=== PATIENT | female | born 1990 | race Caucasian/White ===

== ENCOUNTER 2017-06-17 19:45 | Emergency (ER) | payer BC, OTHER ==
[2017-06-17 19:53] VITALS: RESP 16
[2017-06-17 20:25] LABS: Basophils % (A) 0 %; CHCM 33.3; Eosinophils # (A) 0.1 k/uL (0-0.7); Eosinophils % (A) 2 %; HCT 36.3 % (34.0-46.0); HDW 2.51; HGB 12.3 gm/dL (11.4-16.0); Luc # (Auto) 0.16; Luc % (Auto) 2; Lymphocytes # (A) 2.3 k/uL (1.0-4.8); Lymphocytes % (A) 31 %; MCH 28.6 pg (25.0-35.0); MCHC 33.9 g/dL (31.0-37.0); MCV 84.3 fL (80.0-100.0); Mean Platelet Volume 7.8; Monocytes # (A) 0.4 k/uL (0-1.0); Monocytes % (A) 6 %; Neutrophils # (A) 4.5 k/uL (1.3-7.7); Neutrophils % (A) 60 %; RBC 4.31 m/uL (3.80-5.40); RDW 13.1 % (11.5-15.5); WBC 7.5 k/uL (3.8-10.6); WBC (Perox) 7.65
[2017-06-17 20:27] LABS: Appearance,Urine Clear (Clear); Bilirubin,Urine Negative (Negative); Glucose,Urine (UA) Negative (Negative); Ketones,Urine Negative (Negative); Leukocyte Esterase,Urine Negative (Negative); Nitrite,Urine Negative (Negative); PH, Urine 5.5 (5.0-8.0); Protein,Urine Negative (Negative); Specific Gravity,Urine 1.021 (1.001-1.035); UA Billing (MACRO vs. MICRO) CHEM; Urobilinogen,Urine <2.0 mg/dL (<2.0)
[2017-06-17 20:37] LABS: ALT 23 U/L (9-52); AST 17 U/L (14-36); Alkaline Phosphatase 58 U/L (38-126); Anion Gap 10 mmol/L; Blood Urea Nitrogen 12 mg/dL (7-17); Calcium 9.8 mg/dL (8.4-10.2); Carbon Dioxide 22 mmol/L (22-30); Chloride 106 mmol/L (98-107); Glucose 104 mg/dL (74-99); Non-African American GFR(MDRD) >60 (>60 ml/min/1.73 sqM); Potassium 3.8 mmol/L (3.5-5.1); Sodium 138 mmol/L (137-145); Total Bilirubin 0.8 mg/dL (0.2-1.3); Total Protein 7.6 g/dL (6.3-8.2)
--- NOTE | 2017-06-17 21:55 | ED ---
Abdominal Pain HPI - General Chief Complaint: Abdominal Pain Stated Complaint: Abd Pain Time Seen by Provider: 06/17/17 20:00 Source: patient Mode of arrival: ambulatory Limitations: no limitations - History of Present Illness Initial Comments: 27-year-old female presenting for evaluation of right upper quadrant abdominal pain. She states that she's been having this pain for some time and had an ultrasound scheduled for this coming . She states that today the pain became much worse is located in the right upper quadrant and is as sharpness that radiates into her back. There doesn't seem to be any exacerbating factors she states that she has no appetite and the thought of eating food except feel like there is a lot of pain. There is associated nausea without vomiting and she denies melena, hematochezia, hematemesis, fevers , chills, chest pain, shortness of breath, dysuria, hematuria. - Related Data Home Medications Medication Instructions Recorded Confirmed Pnv,Calcium 72/Iron/Folic Acid 1 tab PO DAILY 07/16/16 06/17/17 [ Plus Tablet] Previous Rx's Medication Instructions Recorded HYDROcodone/APAP 5-325MG [[place] 1 - 2 tab PO Q6HR PRN #14 tab 06/17/17 5-325] Ondansetron Odt [Zofran Odt] 4 mg PO Q8HR PRN #10 tab 06/17/17 Allergies Allergy/AdvReac Type Severity Reaction Status Date / Time ibuprofen AdvReac Nausea & Verified 06/17/17 20:23 Vomiting Review of Systems ROS Statement: Those systems with pertinent positive or pertinent negative responses have been documented in the HPI. ROS Other: All systems not noted in ROS Statement are negative. Constitutional: Denies: fever, chills Eyes: Denies: eye pain, vision change ENT: Denies: ear pain, throat pain Respiratory: Denies: cough, dyspnea Cardiovascular: Denies: chest pain, palpitations Endocrine: Reports: fatigue, polydipsia, polyuria Gastrointestinal: Reports: abdominal pain, nausea. Denies: vomiting, diarrhea, constipation, hematemesis, melena, hematochezia Genitourinary: Denies: urgency, dysuria Musculoskeletal: Denies: back pain, arthralgia Skin: Denies: rash, lesions Neurological: Denies: headache, weakness Psychiatric: Denies: anxiety, depression Hematological/Lymphatic: Denies: easy bleeding, easy bruising Past Medical History Past Medical History: No Reported History History of Any Multi-Drug Resistant Organisms: None Reported Past Surgical History: No Surgical Hx Reported Past Anesthesia/Blood Transfusion Reactions: No Reported Reaction Past Psychological History: No Psychological Hx Reported Smoking Status: Never smoker Past Alcohol Use History: None Reported Past Drug Use History: None Reported - Past Family History Mother Family Medical History: No Reported History General Exam Limitations: no limitations General appearance: alert, in no apparent distress Head exam: Present: atraumatic, normocephalic, normal inspection Eye exam: Present: normal appearance, PERRL, EOMI. Absent: scleral icterus, conjunctival injection, periorbital swelling ENT exam: Present: normal exam, mucous membranes moist Neck exam: Present: normal inspection. Absent: tenderness, meningismus, lymphadenopathy Respiratory exam: Present: normal lung sounds bilaterally. Absent: respiratory distress, wheezes, rales, rhonchi, stridor Cardiovascular Exam: Present: regular rate, normal rhythm, normal heart sounds. Absent: systolic murmur, diastolic murmur, rubs, gallop, clicks GI/Abdominal exam: Present: soft, tenderness (Positive Carballo sign), normal bowel sounds. Absent: distended, guarding, rebound, rigid Rectal exam: Present: deferred Extremities exam: Present: normal inspection, full ROM, normal capillary refill. Absent: tenderness, pedal edema, joint swelling, calf tenderness Back exam: Present: normal inspection Neurological exam: Present: alert, oriented X3, CN II-XII intact Psychiatric exam: Present: normal affect, normal mood Skin exam: Present: warm, dry, intact, normal color. Absent: rash Course Vital Signs 06/17/17 19:49 Temperature 97.8 F Pulse Rate 79 Respiratory 16 Rate Blood Pressure 120/73 O2 Sat by Pulse 97 Oximetry Medical Decision Making - Medical Decision Making 27-year-old female presented for evaluation of right upper quadrant abdominal pain that she's had for the last week. Acutely worsening today she states she is unable to wait until for her outpatient ultrasound. On physical examination she does have a positive Carballo sign however abdomen is soft and non-peritoneal without signs of guarding, rigidity, or rebound. Remainder of her physical exam is benign. Concern for cholecystitis versus cholelithiasis and will obtain ultrasound abdomen, labs, urine and provide pain control. Labs revealed no significant abnormalities. Ultrasound of the abdomen showed some nonspecific findings however in discussion with the radiologist he states that outside of the positive sonographic Carballo sign there are no other significant findings. The patient was reevaluated and had improvement in her pain however it was still present. She is informed of all results and through shared decision making it was determined that she'll be discharged with instructions to follow-up with the on-call surgeon Dr. Bush. She was further advised to return to this facility if her symptoms should worsen or persist. The patient and her acknowledged an understanding of this information and agreed with this plan of care. - Lab Data Result diagrams: 06/17/17 20:00 06/17/17 20:00 Lab Results 06/17/17 06/17/17 06/17/17 Range/Units 20:00 20:00 20:00 WBC 7.5 (3.8-10.6) k/uL RBC 4.31 (3.80-5.40) m/uL Hgb 12.3 (11.4-16.0) gm/dL Hct 36.3 (34.0-46.0) % MCV 84.3 (80.0-100.0) fL MCH 28.6 (25.0-35.0) pg MCHC 33.9 (31.0-37.0) g/dL RDW 13.1 (11.5-15.5) % Plt Count 263 (150-450) k/uL Neutrophils % 60 % Lymphocytes % 31 % Monocytes % 6 % Eosinophils % 2 % Basophils % 0 % Neutrophils # 4.5 (1.3-7.7) k/uL Lymphocytes # 2.3 (1.0-4.8) k/uL Monocytes # 0.4 (0-1.0) k/uL Eosinophils # 0.1 (0-0.7) k/uL Basophils # 0.0 (0-0.2) k/uL Sodium 138 (137-145) mmol/L Potassium 3.8 (3.5-5.1) mmol/L Chloride 106 (98-107) mmol/L Carbon Dioxide 22 (22-30) mmol/L Anion Gap 10 mmol/L BUN 12 (7-17) mg/dL Creatinine 0.70 (0.52-1.04) mg/dL Est GFR (MDRD) Af Amer >60 (>60 ml/min/1.73 sqM) Est GFR (MDRD) Non-Af >60 (>60 ml/min/1.73 sqM) Glucose 104 H (74-99) mg/dL Calcium 9.8 (8.4-10.2) mg/dL Total Bilirubin 0.8 (0.2-1.3) mg/dL AST 17 (14-36) U/L ALT 23 (9-52) U/L Alkaline Phosphatase 58 (38-126) U/L Total Protein 7.6 (6.3-8.2) g/dL Albumin 4.4 (3.5-5.0) g/dL Lipase 159 (23-300) U/L HCG, Qual Not Detected Urine Color Urine Appearance (Clear) Urine pH (5.0-8.0) Ur Specific [place] (1.001-1.035) Urine Protein (Negative) Urine Glucose (UA) (Negative) Urine Ketones (Negative) Urine Blood (Negative) Urine Nitrite (Negative) Urine Bilirubin (Negative) Urine Urobilinogen (<2.0) mg/dL Ur Leukocyte Esterase (Negative) 06/17/17 Range/Units 20:15 WBC (3.8-10.6) k/uL RBC (3.80-5.40) m/uL Hgb (11.4-16.0) gm/dL Hct (34.0-46.0) % MCV (80.0-100.0) fL MCH (25.0-35.0) pg MCHC (31.0-37.0) g/dL RDW (11.5-15.5) % Plt Count (150-450) k/uL Neutrophils % % Lymphocytes % % Monocytes % % Eosinophils % % Basophils % % Neutrophils # (1.3-7.7) k/uL Lymphocytes # (1.0-4.8) k/uL Monocytes # (0-1.0) k/uL Eosinophils # (0-0.7) k/uL Basophils # (0-0.2) k/uL Sodium (137-145) mmol/L Potassium (3.5-5.1) mmol/L Chloride (98-107) mmol/L Carbon Dioxide (22-30) mmol/L Anion Gap mmol/L BUN (7-17) mg/dL Creatinine (0.52-1.04) mg/dL Est GFR (MDRD) Af Amer (>60 ml/min/1.73 sqM) Est GFR (MDRD) Non-Af (>60 ml/min/1.73 sqM) Glucose (74-99) mg/dL Calcium (8.4-10.2) mg/dL Total Bilirubin (0.2-1.3) mg/dL AST (14-36) U/L ALT (9-52) U/L Alkaline Phosphatase (38-126) U/L Total Protein (6.3-8.2) g/dL Albumin (3.5-5.0) g/dL Lipase (23-300) U/L HCG, Qual Urine Color Yellow Urine Appearance Clear (Clear) Urine pH 5.5 (5.0-8.0) Ur Specific [place] 1.021 (1.001-1.035) Urine Protein Negative (Negative) Urine Glucose (UA) Negative (Negative) Urine Ketones Negative (Negative) Urine Blood Negative (Negative) Urine Nitrite Negative (Negative) Urine Bilirubin Negative (Negative) Urine Urobilinogen <2.0 (<2.0) mg/dL Ur Leukocyte Esterase Negative (Negative) Disposition Clinical Impression: Abdominal pain, Positive Carballo's Sign Disposition: HOME SELF-CARE Condition: Stable Instructions: Abdominal Pain (ED), Cholecystitis (ED), Gallstones (ED) Additional Instructions: Please use medication as discussed. Please follow up with family doctor if symptoms have not improved over the next two days. Please return to the emergency room if your symptoms increase or worsen or for any other concerns. Prescriptions: HYDROcodone/APAP 5-325MG [[place] 5-325] 1 - 2 tab PO Q6HR PRN #14 tab PRN Reason: Analgesia Ondansetron Odt [Zofran Odt] 4 mg PO Q8HR PRN #10 tab PRN Reason: Nausea Referrals: Kasi Mendez MD [Primary Care Provider] - 1-2 days Time of Disposition: 22:52
--- NOTE | 2017-06-17 22:04 | US ---
EXAMINATION TYPE: US gallbladder DATE OF EXAM: 06/17/2017 COMPARISON: NONE CLINICAL HISTORY: Pain. EXAM MEASUREMENTS: Liver Length: 15.3 cm Gallbladder Wall: 0.2 cm CBD: 0.5 cm Right Kidney: 10.4 x 3.9 x 4.7 cm Limited due to bowel gas and pain. Pancreas: parts visualized appear wnl Liver: wnl Gallbladder: wnl, junctional folds noted Evidence for sonographic Carballo's sign: Yes CBD: Measures 0.5 cm positive Carballo sign. This can be associated with acute cholecystitis. 2. Right upper quadrant ultrasound is otherwise unremarkable., but tapers at pancreas head (0.2 cm) Right Kidney: wnl IMPRESSION: 1.
[2017-06-17 23:28] VITALS: BP 123/70; PULSE 67; TEMP 98.4
== END 2017-06-17 23:26 | disposition home or self-care (01) ==
LOC: EC 19:45
DX: R10.11 Right upper quadrant pain (principal); R19.8 Other specified symptoms and signs involving the digestive system and abdomen; Z88.6 Allergy status to analgesic agent; Z79.899 Other long term (current) drug therapy
CPT/HCPCS: 36415; 76705; 80053; 81003; 83690; 84703; 85025; 99284

== ENCOUNTER → 2017-06-20 | Outpatient (CLI) | payer BC, OTHER ==
--- NOTE | 2017-06-21 06:06 | NM ---
EXAMINATION TYPE: NM hepatobiliary w EF DATE OF EXAM: 06/20/2017 COMPARISON: Gallbladder ultrasound 3 days ago. HISTORY: Right upper quadrant pain per order. Intermittent abdominal pain with nausea for 10 days per patient. TECHNIQUE: After the intravenous administration of 5.5 mCi Tc 99m Mebrofenin hepatobiliary scintigrap hy is performed. Immediate images post injection. FINDINGS: There is satisfactory initial accumulation of tracer by the liver. The gallbladder is visualized wit hin 15 minutes. The small bowel activity is not well noticed even after 60 minutes. At one hour 8 o unces of oral ensure plus is given to mimic CCK and gallbladder ejection fraction is calculated at 77 %, in the normal range. Therefore there is no scintigraphic evidence of cystic or common bile duct obstruction to suggest acute cholecystitis or gallbladder dyskinesia. IMPRESSION: Exam is within normal limits.
== END | disposition home or self-care (01) ==
LOC: RADNMMAIN 14:54
PROVIDERS: ATTEND Student in an Organized Health Care Education/Training Program
DX: R10.11 Right upper quadrant pain (principal)
CPT/HCPCS: 78226; A9537

== ENCOUNTER 2018-09-02 13:26 | Outpatient (CLI) | payer BC, OTHER ==
[2018-09-02 15:30] VITALS: BP 122/68; PULSE 93; RESP 18; TEMP 97.6
--- NOTE | 2018-10-14 09:31 | P.MSEPDOC ---
Presenting Problems - Arrival Data Date of Arrival on Unit: 09/02/18 Time of Arrival on Unit: 13:27 Mode of Transport: Ambulatory - Complaint OB-Reason for Admission/Chief Complaint: Other Comment: pt arrived c/o cramping and back discomfort Medical History - Information : 2 Para: 1 Term: 1 : 0 Abortions: Spontaneous or Elective: 0 Number of Living Children: 1 - Gestational Age Gestational Age by REGINE (wks/days): 39 Weeks and 2 Days Review of Systems - Review of Systems Constitutional: No problems Breast: No problems ENT: No problems Cardiovascular: No problems Respiratory: No problems Gastrointestinal: No problems Genitourinary: No problems Musculoskeletal: No problems Neurological: No problems Skin: No problems Vital Signs - Temperature Temperature: 97.6 F Temperature Source: Oral - Pulse Right Brachial Pulse Rate: 93 Pulse Assessment Method: Automatic Cuff - Respirations Respiratory Rate: 18 Oxygen Delivery Method: Room Air O2 Sat by Pulse Oximetry: 99 - Blood Pressure Right Arm Blood Pressure: 122/68 Blood Pressure Mean: 86 Blood Pressure Source: Automatic Cuff Medical Screen Scoring (Pre) - Cervical Exam Dilation: 1-3 cm = 1 Effacement: More than 50% = 2 Membranes: Intact - Uterine Contractions Frequency: > 5 minutes apart = 1 Duration: N/A Intensity: N/A - Maternal Vital Signs Maternal Temperature: N/A Maternal Blood Pressure: N/A Signs of Preeclampsia: N/A Maternal Respirations: N/A - Assessment Baseline FHR: 140 Heart Rate - NICHD Category: Category I (Normal) = 0 NST: Reactive Position: N/A Station: N/A - Total Score Total Score (Pre): 4 Medical Screen Scoring (Post) - Post Treatment Level of Risk Post Treatment Level of Risk: Low (0-5) Physician Notification (Post) - Physician Notified Physician Notified Date: 09/02/18 Physician Notified Time: 15:10 Spoke With: dr palumbo New Order Received: Yes - Notification Comment Comment: cervix rechecked after 1 hour with no change noted. may be discharge to home Disposition - Disposition OB Disposition: Physician follow up in office, Discharge to home Discharge Date: 09/02/18 Discharge Time: 15:20 I agree with the RN Medical Screening Exam: Yes Risk & Benefit of care provided described in d/c instruction: Yes Diagnosis: FALSE LABOR AT OR AFTER 37 COMPLETED WEEKS OF GESTATION
== END 2018-09-02 15:20 | disposition home or self-care (01) ==
LOC: FBPOP 13:26
PROVIDERS: ATTEND Obstetrics & Gynecology
DX: O47.1 False labor at or after 37 completed weeks of gestation (principal); Z3A.39 39 weeks gestation of pregnancy
CPT/HCPCS: 59025; 99213

== ENCOUNTER 2018-09-08 02:12 | Inpatient (IN) | payer BC, OTHER ==
[2018-09-08] MEDS ORDERED: METHYLERGONOVINE 0.2 MG/ML 1 ML AMP IM PRN (02:40)
[2018-09-08] MEDS ORDERED: CARBOPROST TROMETHAMINE 250 MCG/ML 1 ML AMP IM PRN (02:40)
[2018-09-08] MEDS ORDERED: OXYTOCIN 10 UNIT/ML 1 ML VIAL IM PRN (02:40)
[2018-09-08] MEDS ORDERED: LIDOCAINE 0.5% (PF) 5 MG/ML (50 ML SDV) SQ PRN (02:40)
[2018-09-08] MEDS ORDERED: TERBUTALINE 1 MG/ML VIAL SQ PRN (02:40)
[2018-09-08] MEDS ORDERED: LACTATED RINGERS 1,000 ML IV SCH (02:45)
[2018-09-08 02:52] LABS: Anisocytosis Slight; Basophils % (A) 0 %; Eosinophils # (A) 0.1 k/uL (0-0.7); Eosinophils % (A) 1 %; HCT 30.9 % (34.0-46.0); HGB 9.8 gm/dL (11.4-16.0); Hypochromasia Slight; Lymphocytes # (A) 2.1 k/uL (1.0-4.8); Lymphocytes % (A) 29 %; MCH 25.7 pg (25.0-35.0); MCHC 31.7 g/dL (31.0-37.0); MCV 80.9 fL (80.0-100.0); Mean Platelet Volume 9.5; Monocytes # (A) 0.4 k/uL (0-1.0); Monocytes % (A) 6 %; Neutrophils # (A) 4.3 k/uL (1.3-7.7); Neutrophils % (A) 61 %; Platelet Count 243 k/uL (150-450); RBC 3.82 m/uL (3.80-5.40); RDW 17.2 % (11.5-15.5); WBC 7.1 k/uL (3.8-10.6)
[2018-09-08] MEDS ORDERED: fentaNYL (PF) 50 MCG/ML 2 ML AMP ONE (03:00)
[2018-09-08] MEDS ORDERED: fentaNYL (PF) 50 MCG/ML 5 ML AMP ONE (03:00)
[2018-09-08] MEDS ORDERED: ROPIVACAINE 5MG/ML 20ML VIAL ONE (03:00)
[2018-09-08] MEDS ORDERED: SODIUM CHLORIDE 0.9% 100 ML BAG ONE (03:00)
[2018-09-08] MEDS: LACTATED RINGERS 1,000 ML IV SCH ×3 (03:15→20:06)
[2018-09-08 03:57] VITALS: BMI 35.4
[2018-09-08] MEDS ORDERED: IBUPROFEN 600 MG TAB PO PRN (04:55)
[2018-09-08] MEDS ORDERED: HYDROCORTISONE 2.5% RECTAL CREAM 30 GM TUBE RECTAL PRN (04:55)
[2018-09-08] MEDS ORDERED: diphenhydrAMINE 50 MG CAP PO PRN (04:55)
[2018-09-08] MEDS ORDERED: BENZOCAINE/MENTHOL SPRAY 1 GM/SPRAY AEROSOL TOPICAL PRN (04:55)
[2018-09-08] MEDS ORDERED: ZOLPIDEM 5 MG TAB PO PRN (04:55)
[2018-09-08] MEDS ORDERED: WITCH HAZEL 1 EACH MED..PAD TOPICAL PRN (04:55)
[2018-09-08] MEDS ORDERED: SIMETHICONE 80 MG CHEWABLE PO PRN (04:55)
[2018-09-08] MEDS ORDERED: diphenhydrAMINE 50 MG/ML 1 ML VIAL IVP PRN ×2 (04:55)
[2018-09-08] MEDS ORDERED: diphenhydrAMINE 25 MG CAP PO PRN (04:55)
[2018-09-08] MEDS ORDERED: LANOLIN CREAM 5 GM TUBE TOPICAL PRN (04:55)
[2018-09-08] MEDS ORDERED: OXYTOCIN 20 UNITS/1000 ML NS 1,000 ML IV SCH (05:00)
--- NOTE | 2018-09-08 05:03 | P.HPOB ---
History of Present Illness H&P Date: 09/08/18 Chief Complaint: IUP at 40 and 1/7 weeks, active labor This is a very pleasant 28-year-old 001 at 40 and one sevenths weeks, estimated due date of 1123. Patient states she started having regular painful contractions around 12:30. Patient notes good movement denies vaginal bleeding or loss of fluid at this time. Patient has had routine care with Dr. Troncoso since 7 weeks of gestation. On blood work showed blood type A+, rubella immune, RPR nonreactive, hepatitis B surface antigen negative, HIV negative, she did pass her 1 hour Glucola screen at 136, GBS negative on 08/13. Review of Systems Constitutional: Denies chills, Denies fatigue, Denies fever Cardiovascular: Reports leg edema Respiratory: Denies cough, Denies dyspnea Gastrointestinal: Denies constipation, Denies diarrhea, Denies nausea, Denies vomiting Genitourinary: Reports Past Medical History Past Medical History: No Reported History History of Any Multi-Drug Resistant Organisms: None Reported Past Surgical History: No Surgical Hx Reported Past Anesthesia/Blood Transfusion Reactions: No Reported Reaction Past Psychological History: No Psychological Hx Reported Smoking Status: Never smoker Past Alcohol Use History: None Reported Past Drug Use History: None Reported - Past Family History Mother Family Medical History: No Reported History Medications and Allergies Home Medications Medication Instructions Recorded Confirmed Type Pnv,Calcium 72/Iron/Folic Acid 1 tab PO DAILY 07/16/16 09/08/18 History [ Plus Tablet] Allergies Allergy/AdvReac Type Severity Reaction Status Date / Time ibuprofen AdvReac Nausea & Verified 09/08/18 02:24 Vomiting Exam Osteopathic Statement: *. No significant issues noted on an osteopathic structural exam other than those noted in the History and Physical/Consult. Vital Signs Temp Pulse Resp BP Pulse Ox 09/08/18 03:54 97 F L 59 L 16 122/68 98 09/08/18 02:25 97.7 F 78 18 128/72 97 Intake and Output 09/07/18 09/07/18 09/08/18 14:59 22:59 06:59 Other: Weight 90.718 kg Targeted physical exam was performed on this date in general this is a well- nourished well-developed female in active labor, abdomen is noted to be gravid and appropriate for gestational age, on cervical exam she was complete with a bulging bag of water and vertex presentation. Amniotomy was performed and clear fluid was obtained. The heart tones were noted to be reassuring, and patient was cherie every 3 minutes. Results Result Diagrams: 09/08/18 02:45 Abnormal Lab Results - Last 24 Hours (Table) 09/08/18 Range/Units 02:45 Hgb 9.8 L (11.4-16.0) gm/dL Hct 30.9 L (34.0-46.0) % RDW 17.2 H (11.5-15.5) % Assessment and Plan (1) Term Current Visit: Yes Status: Acute Code(s): Z34.80 - ENCOUNTER FOR SUPRVSN OF NORMAL , UNSP TRIMESTER SNOMED Code(s): 54291445 (2) Active labor at term Current Visit: Yes Status: Acute Code(s): FOK2851 - SNOMED Code(s): 50467475 Plan: Patient minutes labor and delivery for expectant management, she does desire epidural.
--- NOTE | 2018-09-08 05:06 | P.PROBDLV ---
Vaginal Delivery Note - . Vaginal Delivery Note: This is a very pleasant 28-year-old 2 para 1 at 40 and one sevenths weeks that presented to labor and delivery in active labor. Patient was found to be 6-7 cm dilated and admitted to labor and delivery. Patient was uncomfortable and requested epidural. Epidural was placed by anesthesia without difficulty. Patient progressed to complete amniotomy was performed and clear fluid was obtained. Patient was then placed in the modified lithotomy position, and with excellent maternal effort patient normal spontaneous vaginal delivery of a viable female infant at 435, weight of 7 lbs. 7 oz., Apgars of 9 and 9 at one and 5 minutes respectively. Afterwards the placenta was doubly clamped and cut and delivered spontaneously intact with a three-vessel cord being noted. Inspection the patient's vaginal vault a second-degree midline laceration was noted this was repaired in the usual fashion with 3-0 Rapide. In addition a left labial laceration was noted and repaired with 4-0 chromic in an interrupted fashion. Afterwards hemostasis was appreciated and the uterus was noted to be firm and below the umbilicus. Estimated blood loss 200 mL Patient and tolerated delivery well and are resting comfortably.
[2018-09-08] MEDS: SENNOSIDES-DOCUSATE SODIUM 1 EACH TAB PO SCH ×2 (08:13→21:43)
[2018-09-08] MEDS ORDERED: PRENATAL VIT-IRON-FOLIC ACID 1 EACH CAP PO SCH (09:00)
[2018-09-08] MEDS: ACETAMINOPHEN TAB 325 MG TAB PO PRN ×2 (13:43→20:13)
[2018-09-09 06:38] LABS: Anisocytosis Slight; Basophils % (A) 0 %; Eosinophils # (A) 0.1 k/uL (0-0.7); Eosinophils % (A) 1 %; HCT 26.5 % (34.0-46.0); HGB 8.4 gm/dL (11.4-16.0); Hypochromasia Slight; Lymphocytes % (A) 21 %; MCH 25.7 pg (25.0-35.0); MCHC 31.6 g/dL (31.0-37.0); MCV 81.2 fL (80.0-100.0); Mean Platelet Volume 9.8; Monocytes # (A) 0.4 k/uL (0-1.0); Monocytes % (A) 4 %; Neutrophils % (A) 72 %; Platelet Count 180 k/uL (150-450); RBC 3.26 m/uL (3.80-5.40); RDW 17.1 % (11.5-15.5); WBC 9.7 k/uL (3.8-10.6)
--- NOTE | 2018-09-09 06:52 | P.PN ---
Progress Note - Text Progress Note Date: 09/09/18 patient evaluated post labor epidural denies any headaches or complaints cleared from anesthesia
--- NOTE | 2018-09-09 07:49 | P.DS ---
Providers Date of admission: 09/08/18 02:29 Expected date of discharge: 09/09/18 Attending physician: Vanita Troncoso Primary care physician: Stated None Hospital Course: This is a 28 rolled white female 2 para 1001 EDC 09/07/2018 at 40 and one sevenths weeks' gestation. Patient presented from home and active spontaneous labor. was essentially unremarkable, rubella status immune, group B strep cultures negative. Please see dictated history and physical for details. Patient progressed quickly, received an epidural per her request. Artificial amniorrhexis revealed clear fluid. She went on to deliver spontaneously a liveborn female with scores of 9 and 9 at one and 5 minutes respectively. Infant weighed 3360 g or 7 pounds 6.5 ounces. There was an estimated blood loss recorded of 200 mL, and a small left labial laceration that was easily repaired. Please see dictated delivery note for details. This morning the patient is doing well. She is voiding, ambulating and passing flatus without difficulty. Vital signs are stable and she is afebrile. Fundus is firm and in the midline, symmetric and 18 week size. Extremities are negative for edema. Argyle is doing well. Patient is judged to be in very good condition for discharge home. Patient is being discharged home with instructions to follow-up with me in the office in 6 weeks. I have reminded her no intercourse, tampons or douching. She will use [id number] Advil or Aleve as needed for pain. I've asked her to call me with any fevers shakes or chills, foul smelling or copious lochia , with the passage of large blood clots, with any pain not alleviated by over- the-counter products, or indeed with any concerns. We have discussed options for contraception and we will discuss this further in the office. Patient Condition at Discharge: Good Plan - Discharge Summary Discharge Rx Participant: No New Discharge Prescriptions: No Action Pnv,Calcium 72/Iron/Folic Acid [ Plus Tablet] 1 tab PO DAILY Discharge Medication List Pnv,Calcium 72/Iron/Folic Acid [ Plus Tablet] 1 tab PO DAILY 07/16/16 [ History] Follow up Appointment(s)/Referral(s): Vanita Troncoso MD [STAFF PHYSICIAN] - 6 Weeks Discharge Disposition: HOME SELF-CARE
[2018-09-09] MEDS: ACETAMINOPHEN TAB 325 MG TAB PO PRN (08:13)
[2018-09-09] MEDS: SENNOSIDES-DOCUSATE SODIUM 1 EACH TAB PO SCH (08:15)
[2018-09-09 08:24] VITALS: BP 127/70; PULSE 103; RESP 18; TEMP 97.9
== END 2018-09-09 11:45 | disposition home or self-care (01) | DRG 807 ==
LOC: FBPOP 02:12 → 4FBP 02:29
PROVIDERS: ADMIT Obstetrics & Gynecology Obstetrics; ATTEND Obstetrics & Gynecology
PROC: 10E0XZZ Delivery of Products of Conception, External Approach (ICD-10-PCS; principal; 2018-09-08)
PROC: 0KQM0ZZ Repair Perineum Muscle, Open Approach (ICD-10-PCS; 2018-09-08)
PROC: 0HQ9XZZ Repair Perineum Skin, External Approach (ICD-10-PCS; 2018-09-08)
DX: O70.1 Second degree perineal laceration during delivery (principal); O70.0 First degree perineal laceration during delivery; Z37.0 Single live birth; Z3A.40 40 weeks gestation of pregnancy
CPT/HCPCS: 59025; 85025; 86850; 86900; 86901; 99213

== ENCOUNTER 2018-09-12 11:33 | Emergency (ER) | payer BC ==
--- NOTE | 2018-09-12 13:31 | ED ---
General Adult HPI - General Chief complaint: Headache Stated complaint: epidural issues Source: patient Mode of arrival: ambulatory Limitations: no limitations - History of Present Illness Initial comments: Dictation was produced using [employer] dictation software. please excuse any grammatical, word or spelling errors. Chief Complaint: 28-year-old female presents with chief complaint of headache. History of Present Illness: Patient is a 28-year-old female who presents one week . Patient states she had uncomplicated . She did receive epidural during the . She states she has a headache that's throbbing in nature. It's worse with standing and improves with lying flat. Neuro deficits. Denies any vision changes. The ROS documented in this emergency department record has been reviewed and confirmed by me. Those systems with pertinent positive or negative responses have been documented in the HPI. All other systems are other negative and/or noncontributory. - Related Data Home Medications Medication Instructions Recorded Confirmed Acetaminophen Tab [Tylenol Tab] 1,000 mg PO Q6HR PRN 09/12/18 09/12/18 Naproxen Sodium [Aleve] 220 mg PO Q12HR PRN 09/12/18 09/12/18 Allergies Allergy/AdvReac Type Severity Reaction Status Date / Time ibuprofen AdvReac Nausea & Verified 09/12/18 14:57 Vomiting Review of Systems ROS Statement: Those systems with pertinent positive or pertinent negative responses have been documented in the HPI. ROS Other: All systems not noted in ROS Statement are negative. Past Medical History Past Medical History: No Reported History History of Any Multi-Drug Resistant Organisms: None Reported Past Surgical History: No Surgical Hx Reported Past Anesthesia/Blood Transfusion Reactions: No Reported Reaction Past Psychological History: No Psychological Hx Reported Smoking Status: Never smoker Past Alcohol Use History: None Reported Past Drug Use History: None Reported - Past Family History Mother Family Medical History: No Reported History General Exam - General Exam Comments Initial Comments: PHYSICAL EXAM: General Impression: Alert and oriented x3, acute distress secondary to pain HEENT: Normocephalic atraumatic, extra-ocular movements intact, pupils equal and reactive to light bilaterally, mucous membranes moist. Cardiovascular: Heart regular rate and rhythm, S1&S2 audible, no murmurs, rubs or gallops Chest: Lungs clear to auscultation bilaterally, no rhonchi, no wheeze, no rales Abdomen: Bowel sounds present, abdomen soft, non-tender, non-distended, no organomegaly Musculoskeletal: Pulses present and equal in all extremities, no peripheral edema Motor: Power 5/5 bilaterally, no focal deficits noted Neurological: CN II-XII grossly intact, no focal motor or sensory deficits noted Skin: Intact with no visualized rashes Psych: Normal affect and mood Limitations: no limitations Course Vital Signs 09/12/18 09/12/18 11:50 14:49 Temperature 98.3 F Pulse Rate 69 66 Respiratory 18 15 Rate Blood Pressure 128/88 146/88 O2 Sat by Pulse 99 98 Oximetry Medical Decision Making - Medical Decision Making ED course: Patient is a 28-year-old female presents with chief complaint of headache. Vital signs upon arrival are within acceptable limits. Patient was initially evaluated in the waiting room. Patient is normotensive. No clinical suspicion of preeclampsia at this time. Patient's history is consistent with post-epidural headache. Patient given intravenous fluids and caffeine. Anesthesia was contacted. They will plan to do a blood patch. Emergency department as soon as possible. Patient was given intravenous fluids and caffeine. Blood patch was performed by anesthesia. Anesthesia recommended observing patient for an hour. Patient reevaluated with improved symptoms. Patient must follow-up with primary care physician after discharge. Disposition Clinical Impression: Lumbar puncture headache Disposition: HOME SELF-CARE Condition: Good Instructions: Acute Headache (ED) Is patient prescribed a controlled substance at d/c from ED?: No Referrals: Kasi Mendez MD [Primary Care Provider] - 1-2 days Time of Disposition: 16:37
[2018-09-12] MEDS ORDERED: SODIUM CHLORIDE 0.9% 1,000 ML IV STA (14:56)
[2018-09-12] MEDS ORDERED: CAFFEINE-SODIUM BENZOATE 500 MG in SODIUM CHLORIDE 0.9% 1,000 ML IVPB ONE (14:56)
[2018-09-12 18:12] LABS: Anisocytosis Slight; Basophils % (A) 0 %; Eosinophils # (A) 0.1 k/uL (0-0.7); Eosinophils % (A) 1 %; HCT 32.2 % (34.0-46.0); HGB 10.8 gm/dL (11.4-16.0); Hypochromasia Slight; Lymphocytes # (A) 1.8 k/uL (1.0-4.8); Lymphocytes % (A) 21 %; MCH 27.1 pg (25.0-35.0); MCHC 33.5 g/dL (31.0-37.0); MCV 80.8 fL (80.0-100.0); Mean Platelet Volume 8.1; Monocytes # (A) 0.4 k/uL (0-1.0); Monocytes % (A) 5 %; Neutrophils # (A) 6.3 k/uL (1.3-7.7); Neutrophils % (A) 72 %; Platelet Count 290 k/uL (150-450); RBC 3.99 m/uL (3.80-5.40); RDW 17.4 % (11.5-15.5); WBC 8.8 k/uL (3.8-10.6)
[2018-09-12 18:14] LABS: Appearance,Urine Clear (Clear); Bacteria,Urine Rare /hpf; Bilirubin,Urine Negative (Negative); Blood,Urine Moderate (Negative); Color,Urine Colorless; Glucose,Urine (UA) Negative (Negative); Ketones,Urine 1+ (Negative); Leukocyte Esterase,Urine Moderate (Negative); Nitrite,Urine Negative (Negative); Protein,Urine Negative (Negative); RBC,Urine 12 /hpf (0-5); Specific Gravity,Urine 1.005 (1.001-1.035); Squamous Epithelial Cell,Urine 1 /hpf (0-4); Urobilinogen,Urine <2.0 mg/dL (<2.0); WBC,Urine 15 /hpf (0-5)
[2018-09-12 18:21] LABS: INR 0.9 (<1.2); Prothrombin Time 9.4 sec (9.0-12.0)
[2018-09-12 18:22] LABS: ALT 36 U/L (9-52); AST 22 U/L (14-36); Albumin 3.5 g/dL (3.5-5.0); Alkaline Phosphatase 108 U/L (38-126); Anion Gap 7 mmol/L; Blood Urea Nitrogen 9 mg/dL (7-17); Calcium 8.8 mg/dL (8.4-10.2); Carbon Dioxide 22 mmol/L (22-30); Chloride 113 mmol/L (98-107); Glucose 83 mg/dL (74-99); Magnesium 1.8 mg/dL (1.6-2.3); Phosphorus 3.7 mg/dL (2.5-4.5); Potassium 4.6 mmol/L (3.5-5.1); Sodium 142 mmol/L (137-145); Total Bilirubin 1.1 mg/dL (0.2-1.3); Total Protein 6.9 g/dL (6.3-8.2); Uric Acid 4.8 mg/dL (3.7-7.4)
[2018-09-12 18:34] LABS: Creatine Kinase MB 1.1 ng/mL (0.0-2.4)
[2018-09-12] MEDS ORDERED: LABETALOL 5 MG/ML VIAL MDV IVP STA (20:03)
[2018-09-12 20:28] VITALS: RESP 14
[2018-09-12 20:31] VITALS: PULSE 68
[2018-09-12 20:40] VITALS: TEMP 97.9
[2018-09-12 20:48] VITALS: BP 133/88
== END 2018-09-12 20:45 | disposition home or self-care (01) ==
LOC: EC 11:33
DX: O99.355 Diseases of the nervous system complicating the puerperium (principal); G97.1 Other reaction to spinal and lumbar puncture; O99.89 Other specified diseases and conditions complicating pregnancy, childbirth and the puerperium; R03.0 Elevated blood-pressure reading, without diagnosis of hypertension; Z88.6 Allergy status to analgesic agent
CPT/HCPCS: 36415; 62273; 80053; 81001; 82550; 82553; 83735; 84100; 84550; 85025; 85384; 85610; 85730; 87086; 96361; 96365; 96375; 99284

== ENCOUNTER 2018-12-08 00:19 | Inpatient (IN) | payer BC, OTHER ==
--- NOTE | 2018-12-08 01:12 | ED ---
Abdominal Pain HPI - General Chief Complaint: Abdominal Pain Stated Complaint: Transfer From [facility] Seen by Provider: 12/08/18 00:35 Source: patient Mode of arrival: ambulatory Limitations: no limitations - History of Present Illness Initial Comments: 28-year-old female patient presents to the emergency department as a transfer from [facility] for admission for choledocholithiasis. Patient initially presented to the emergency department for a 2 day history of right upper quadrant abdominal pain, nausea, and vomiting. Patient states that pain worsened whenever she attempted to eat. Patient states that she was unable to keep down any food or fluids for the past 2 days. Patient describes the pain as a sharp crampy pain to the right upper quadrant that radiates through to her back. Denies any radiation to the shoulder. Denies any fever or chills. Patient states that she has had similar episodes of this type of pain over the last 12 weeks but this was the worst episode. Patient is currently breast- feeding. Denies any chance of currently. Patient denies any recent rash, shortness breath, chest pain, diarrhea, constipation, back pain, numbness , tingling, dizziness, weakness, hematuria, dysuria, urinary urgency, urinary frequency, headache, visual changes, or any other complaints. - Related Data Home Medications Medication Instructions Recorded Confirmed Acetaminophen Tab [Tylenol Tab] 1,000 mg PO Q6HR PRN 09/12/18 09/12/18 Naproxen Sodium [Aleve] 220 mg PO Q12HR PRN 09/12/18 09/12/18 Allergies Allergy/AdvReac Type Severity Reaction Status Date / Time ibuprofen AdvReac Nausea & Verified 09/12/18 14:57 Vomiting Review of Systems ROS Statement: Those systems with pertinent positive or pertinent negative responses have been documented in the HPI. ROS Other: All systems not noted in ROS Statement are negative. Past Medical History Past Medical History: No Reported History History of Any Multi-Drug Resistant Organisms: None Reported Past Surgical History: No Surgical Hx Reported Past Anesthesia/Blood Transfusion Reactions: No Reported Reaction Past Psychological History: No Psychological Hx Reported Smoking Status: Never smoker Past Alcohol Use History: None Reported Past Drug Use History: None Reported - Past Family History Mother Family Medical History: No Reported History General Exam Limitations: no limitations General appearance: alert, in no apparent distress, other (Physical well- developed, well-nourished adult female patient in no acute distress. Vital signs upon presentation are temperature 97.6F, pulse 67, respirations 16, blood pressure 103/68, pulse ox 100% on room air.) Eye exam: Present: normal appearance, PERRL, EOMI. Absent: scleral icterus, conjunctival injection, periorbital swelling ENT exam: Present: normal exam, normal oropharynx, mucous membranes moist Respiratory exam: Present: normal lung sounds bilaterally. Absent: respiratory distress, wheezes, rales, rhonchi, stridor Cardiovascular Exam: Present: regular rate, normal rhythm, normal heart sounds. Absent: systolic murmur, diastolic murmur, rubs, gallop, clicks GI/Abdominal exam: Present: soft, tenderness (Right upper quadrant abdominal tenderness), normal bowel sounds. Absent: distended, guarding, rebound, rigid Neurological exam: Present: alert, oriented X3, CN II-XII intact Psychiatric exam: Present: normal affect, normal mood Skin exam: Present: warm, dry, intact, normal color. Absent: rash Course Vital Signs 12/08/18 00:21 Temperature 97.6 F Pulse Rate 67 Respiratory 16 Rate Blood Pressure 103/68 O2 Sat by Pulse 100 Oximetry Medical Decision Making - Medical Decision Making 28 old female patient presented to the emergency department as a transfer from [facility] for choledocholithiasis. Patient has been having 2- 3 day history of abdominal pain and vomiting. Abdominal pain worsens with eating. Today she is unable to keep down any food or fluids. Physical examination does reveal right upper quadrant abdominal tenderness. Mild scleral icterus. Labs reviewed from the previous hospital showed normal white blood cell count alk phos 232, a LT a 56, AST 614, total bilirubin 4.1, direct bili 0.6, amylase and lipase were normal. Patient 3+ ketones in the urine. CT abdomen and pelvis was obtained and did show evidence for choledocholithiasis with a 6 mm stone in the distal common bile duct at the level of the pancreatic head. Associated mild dilated patient of the common bile duct measuring 9 mm as well as dilatation of the cystic duct. Mild prominent central intrahepatic bile ducts. Patient was given Pepcid, Zofran, and Zosyn as well as 3 L of normal saline. We will admit to [facility] hospitalists. Gastric urology will be consulted. We will continue Zosyn. - Radiology Data Radiology results: report reviewed CT abdomen and pelvis was obtained with contrast at [facility], report was reviewed in its entirety. Impression by Dr. Lomax shows choledocholithiasis with a 6 mm stone in the distal common bile duct at the level of the pancreatic head. Associated mild dilatation of the common bile duct measuring 9 mm, as well as dilatation of the cystic duct. Mild prominence of the central intrahepatic bile ducts. Additional focal low density in the right hepatic lobe measuring 8 mm, may represent low density lesion versus focal dilatation of the bile duct. Calcifications along the wall the gallbladder, likely represent stones with questionable wall calcification. The appendix appears normal. Small free pelvic fluid is likely physiologic versus reactive. Disposition Clinical Impression: Choledocholithiasis Disposition: ADMITTED IP TO THIS [facility] Condition: Serious Referrals: Kasi Mendez MD [Primary Care Provider] - 1-2 days Decision to Admit Reason: Admit from EC Decision Date: 12/08/18 Decision Time: 01:12
[2018-12-08] MEDS ORDERED: NALOXONE 0.4 MG/ML 1 ML VIAL IV PRN (01:13)
[2018-12-08] MEDS ORDERED: ONDANSETRON 4 MG/2 ML VIAL IVP PRN (01:13)
[2018-12-08] MEDS: SODIUM CHLORIDE 0.9% 1,000 ML IV SCH ×3 (02:07→23:59)
[2018-12-08 02:39] VITALS: BMI 31.1
[2018-12-08] MEDS: MORPHINE SULFATE 4 MG/ML SYRINGE IV PRN ×3 (06:42→23:58)
[2018-12-08 11:58] LABS: INR 1.1 (<1.2); Prothrombin Time 11.5 sec (9.0-12.0)
[2018-12-08 12:04] LABS: ALT 572 U/L (9-52); AST 251 U/L (14-36); Albumin 3.6 g/dL (3.5-5.0); Alkaline Phosphatase 213 U/L (38-126); Anion Gap 11 mmol/L; Bilirubin, Conjugated 1.2 mg/dL (0.0-0.3); Bilirubin, Delta 1.3 mg/dL (0.0-0.2); Bilirubin,Unconjugated 2.4 mg/dL (0.0-1.1); Blood Urea Nitrogen 13 mg/dL (7-17); Calcium 8.7 mg/dL (8.4-10.2); Carbon Dioxide 18 mmol/L (22-30); Chloride 112 mmol/L (98-107); Glucose 54 mg/dL (74-99); Potassium 4.4 mmol/L (3.5-5.1); Sodium 141 mmol/L (137-145); Total Bilirubin 4.9 mg/dL (0.2-1.3); Total Protein 6.4 g/dL (6.3-8.2)
--- NOTE | 2018-12-08 16:08 | P.CONS ---
History of Present Illness - Reason for Consult Consult date: 12/08/18 choledocholithiasis Requesting physician: Biju Crawford - Chief Complaint Abdominal pain - History of Present Illness Pleasant 28-year-old female who was transferred to [facility] from an outside hospital after presenting with complaints of abdominal pain. The patient reports episodes of right upper quadrant abdominal pain occurring since her first 2 years ago. Episodes have been intermittent. The patient recently gave to her second child. She developed severe abdominal pain in the epigastric and right upper quadrant of her abdomen with radiation to her back. The patient had been present for 2 days prior to presentation to the hospital for evaluation. She reports the pain is intense with associated nausea and decreased oral intake. The patient had CT imaging performed which showed findings of a distal common bile duct calculi with mild CBD dilation. The patient was transferred for therapeutic intervention with ERCP. On presentation to the hospital she was found to have a total bilirubin 4.9, alkaline phosphatase 213, AST 251 and ALT 572. No fevers or chills reported. Review of Systems REVIEW OF SYSTEMS: CONSTITUTIONAL: Denies any fevers, chills, weight change or fatigue. CARDIOVASCULAR: Denies any chest pain, palpitations high or low blood pressures RESPIRATORY: Denies any shortness of breath, hemoptysis or cough. GENITOURINARY: No dysuria or hematuria. MUSCULOSKELETAL: No weakness reported. SKIN: Denies any new rashes or lesions, some jaundice noted. PSYCHIATRIC: Denies any depression or anxiety. NEUROLOGY: Denies headache, denies any new focal deficits. EARS/NOSE/THROAT: No recent hearing change, congestion, nasal discharge or sore throat. EYES: No pain in eyes, discharge or change in vision. GASTROINTESTINAL: As per HPI. Past Medical History Past Medical History: No Reported History History of Any Multi-Drug Resistant Organisms: None Reported Past Surgical History: No Surgical Hx Reported Past Anesthesia/Blood Transfusion Reactions: No Reported Reaction Past Psychological History: No Psychological Hx Reported Smoking Status: Never smoker Past Alcohol Use History: None Reported Past Drug Use History: None Reported Additional History: Family history: Reviewed with the patient and noncontributory to current medical presentation - Past Family History Mother Family Medical History: No Reported History Medications and Allergies Home Medications Medication Instructions Recorded Confirmed Type Acetaminophen Tab [Tylenol Tab] 1,000 mg PO Q6HR PRN 09/12/18 12/08/18 History Naproxen Sodium [Aleve] 220 mg PO Q12HR PRN 09/12/18 12/08/18 History Omeprazole Magnesium [PriLOSEC OTC] 20 mg PO DAILY 12/08/18 12/08/18 History Xxb-Nkyn-Pkkiz Acid 1 cap PO DAILY 12/08/18 12/08/18 History [-U Capsule (formulary)] Allergies Allergy/AdvReac Type Severity Reaction Status Date / Time ibuprofen AdvReac Nausea & Verified 12/08/18 08:23 Vomiting Physical Exam Vitals: Vital Signs Temp Pulse Pulse Resp BP BP Pulse Ox 12/08/18 15:00 97.9 F 92 18 110/75 99 12/08/18 08:00 97.9 F 112 H 16 120/66 99 12/08/18 06:39 97.7 F 107 H 16 101/69 97 12/08/18 02:28 97.4 F L 65 16 99 12/08/18 02:11 98.1 F 65 16 105/67 97 12/08/18 00:21 97.6 F 67 16 103/68 100 Intake and Output 12/08/18 12/08/18 12/08/18 06:59 14:59 22:59 Other: # Voids 1 2 Weight 79.379 kg On physical examination, patient appears comfortable in no apparent distress. HEAD: Normocephalic, atraumatic. EYES: No scleral icterus. No conjunctival injection. MOUTH: No lesions, tongue midline. NECK: Trachea midline, no gross abnormalities. CHEST: Clear to auscultation with no wheezing or rhonchi appreciated. HEART: Regular rate and rhythm. ABDOMEN: Soft, obese, diffusely tender to palpation, worse on the right side of her abdomen. Bowel sounds are positive. No organomegaly. No guarding or rigidity. EXTREMITIES: No pedal edema. SKIN: No rashes, jaundice noted. NEUROLOGIC: Alert and oriented x3. No focal deficits. Results CBC & Chem 7: 12/08/18 11:35 Labs: Abnormal Lab Results - Last 24 Hours (Table) 12/08/18 Range/Units 11:35 Chloride 112 H (98-107) mmol/L Carbon Dioxide 18 L (22-30) mmol/L Glucose 54 L (74-99) mg/dL Total Bilirubin 4.9 H (0.2-1.3) mg/dL Conjugated Bilirubin 1.2 H (0.0-0.3) mg/dL Unconjugated Bilirubin 2.4 H (0.0-1.1) mg/dL Delta Bilirubin 1.3 H (0.0-0.2) mg/dL AST 251 H (14-36) U/L ALT 572 H (9-52) U/L Alkaline Phosphatase 213 H (38-126) U/L CT scan - abdomen: report reviewed (CT imaging performed which showed findings of a distal common bile duct calculi with mild CBD dilation. ) Assessment and Plan (1) Choledocholithiasis Narrative/Plan: 28-year-old with a two-year history of intermittent right upper quadrant abdominal pain, presenting with 2 days of severe pain and CT imaging performed which showed findings of a distal common bile duct calculi with mild CBD dilation. Patient found to have corresponding elevation in her liver enzymes. Current Visit: Yes Status: Acute Code(s): K80.50 - CALCULUS OF BILE DUCT W/ O CHOLANGITIS OR CHOLECYST W/O OBST SNOMED Code(s): 717139448 (2) Elevated liver enzymes Current Visit: Yes Status: Acute Code(s): R74.8 - ABNORMAL LEVELS OF OTHER SERUM ENZYMES SNOMED Code(s): 900945242 Plan: Supportive care Okay for liquids, npo after midnight Monitor liver enzymes Monitor for fevers, leukocytosis or signs or symptoms of cholangitis Patient started on broad-spectrum antibiotics Plan for Indocin preprocedure Plan for ERCP tomorrow The patient's case, and treatment plan have been discussed with her and her in detail who understand the risks, benefits and side effects and that all their questions answered to their satisfaction Thank you for allowing us to participate in the care of this patient we will continue to follow
[2018-12-08] MEDS: metroNIDAZOLE-NS PMX 500 MG in SALINE 1 100ML.BAG IVPB SCH ×2 (16:36→23:59)
[2018-12-08] MEDS: LEVOFLOXACIN 500MG-D5W PMX 500 MG in DEXTROSE/WATER 1 100ML.BAG IVPB SCH (17:38)
--- NOTE | 2018-12-08 23:43 | P.HPIM ---
History of Present Illness H&P Date: 12/08/18 Chief Complaint: Abdominal pain Patient is a 28-year-old female without significant past medical history and is three-month came to ER with complaints of right upper quadrant abdominal pain along with nausea and vomiting worsening for the past 2 days prior to admission. Patient was initially presented to [facility]. Patient was transferred to [facility] for possible choledocholithiasis. Patient was found to have elevated liver enzymes and hyperbilirubinemia 4.9 on admission currently. Patient does have abdominal pain for the past 2 days and unable to keep down foods. Patient does have sharp pain in the right upper quadrant and radiates to the back. Denied any fever or chills at home. Denied any chest pain or shortness of breath. No diarrhea. No headache or dizziness or lightheadedness. No dysuria or hematuria. The patient had CT abdomen which showed findings of a distal common bile duct calculi with mild CBD dilation. Patient was transferred for GI evaluation and ERCP. Laboratory data reviewed from the outside hospital facility. Review of Systems Constitutional: Patient denies any fever or chills . No generalized weakness or weight loss. Abdomen: Does have nausea vomiting and right upper quadrant pain. No diarrhea. Cardiovascular: Patient denies any chest pain or short of breath no palpitations. Respiratory: patient denied any cough is from production. No shortness of breath Neurologic: Patient denied any numbness or tingling headache. Musculoskeletal: Patient denies any complaints of joint swelling or deformity. Skin: Negative Psychiatric: Negative Endocrine: No heat or cold intolerance. No recent weight gain. Genitourinary: No dysuria or hematuria. All other 14 point ROS negative except the above Past Medical History Past Medical History: No Reported History History of Any Multi-Drug Resistant Organisms: None Reported Past Surgical History: No Surgical Hx Reported Past Anesthesia/Blood Transfusion Reactions: No Reported Reaction Past Psychological History: No Psychological Hx Reported Smoking Status: Never smoker Past Alcohol Use History: None Reported Past Drug Use History: None Reported - Past Family History Mother Family Medical History: No Reported History Medications and Allergies Home Medications Medication Instructions Recorded Confirmed Type Acetaminophen Tab [Tylenol Tab] 1,000 mg PO Q6HR PRN 09/12/18 12/08/18 History Naproxen Sodium [Aleve] 220 mg PO Q12HR PRN 09/12/18 12/08/18 History Omeprazole Magnesium [PriLOSEC OTC] 20 mg PO DAILY 12/08/18 12/08/18 History Tnq-Dahe-Gisha Acid 1 cap PO DAILY 12/08/18 12/08/18 History [-U Capsule (formulary)] Allergies Allergy/AdvReac Type Severity Reaction Status Date / Time ibuprofen AdvReac Nausea & Verified 12/08/18 08:23 Vomiting Physical Exam Vitals: Vital Signs Temp Pulse Pulse Resp BP BP Pulse Ox 12/08/18 08:00 97.9 F 112 H 16 120/66 99 12/08/18 06:39 97.7 F 107 H 16 101/69 97 12/08/18 02:28 97.4 F L 65 16 99 12/08/18 02:11 98.1 F 65 16 105/67 97 12/08/18 00:21 97.6 F 67 16 103/68 100 Intake and Output 12/07/18 12/08/18 12/08/18 22:59 06:59 14:59 Other: # Voids 1 Weight 79.379 kg PHYSICAL EXAMINATION: Patient is lying in the bed comfortably, no acute distress, awake alert and oriented.. HEENT: Normocephalic. Neck is supple. Pupils reactive. Nostrils clear. Oral cavity is moist. Ears reveal no drainage. Neck reveals no JVD, carotid bruits, or thyromegaly. CHEST EXAMINATION: Trachea is central. Symmetrical expansion. Lung villalba clear to auscultation and percussion. CARDIAC: Normal S1, S2 with no gallops. No murmurs ABDOMEN: Soft. Right upper quadrant tenderness with deep palpation. Bowel sounds normal. No organomegaly. No abdominal bruits. Extremities: reveal no edema. No clubbing or cyanosis Neurologically awake, alert, oriented x3 with well-coordinated movements. No focal deficits noted Skin: No rash or skin lesions. Psychiatric: Coperative. Nonsuicidal Musculoskeletal: No joint swelling or deformity. Normal range of motion. Results CBC & Chem 7: 12/08/18 11:35 Labs: Abnormal Lab Results - Last 24 Hours (Table) 12/08/18 Range/Units 11:35 Chloride 112 H (98-107) mmol/L Carbon Dioxide 18 L (22-30) mmol/L Glucose 54 L (74-99) mg/dL Total Bilirubin 4.9 H (0.2-1.3) mg/dL Conjugated Bilirubin 1.2 H (0.0-0.3) mg/dL Unconjugated Bilirubin 2.4 H (0.0-1.1) mg/dL Delta Bilirubin 1.3 H (0.0-0.2) mg/dL AST 251 H (14-36) U/L ALT 572 H (9-52) U/L Alkaline Phosphatase 213 H (38-126) U/L Thrombosis Risk Factor Assmnt - DVT/VTE Prophylaxis DVT/VTE Prophylaxis: Pharmacologic Prophylaxis ordered - Choose All That Apply Each Factor Represents 1 point: Obesity (BMI >25), or Other Risk Factors: No Thrombosis Risk Factor Assessment Total Risk Factor Score: 2 Thrombosis Risk Factor Assessment Level: Low Risk Assessment and Plan Assessment: Choledocholithiasis. CT showed distal common bile duct calculi with mild CBD dilatation Hyperbilirubinemia and elevated liver enzymes 3 months DVT prophylaxis Plan: Patient will be continued on IV hydration and pain management with morphine. Patient was seen by GI and is planning for ERCP tomorrow. Empiric antibiotics for possible cholangitis, Levaquin and Flagyl was ordered. Follow up closely and further recommendations based on the clinical course. Time with Patient: Greater than 30
[2018-12-09] MEDS: metroNIDAZOLE-NS PMX 500 MG in SALINE 1 100ML.BAG IVPB SCH ×2 (08:26→16:20)
[2018-12-09 08:50] LABS: Basophils % (A) 0 %; Eosinophils # (A) 0.2 k/uL (0-0.7); Eosinophils % (A) 4 %; HCT 34.4 % (34.0-46.0); HGB 10.9 gm/dL (11.4-16.0); Lymphocytes # (A) 1.3 k/uL (1.0-4.8); Lymphocytes % (A) 28 %; MCH 27.1 pg (25.0-35.0); MCHC 31.7 g/dL (31.0-37.0); MCV 85.4 fL (80.0-100.0); Mean Platelet Volume 7.5; Monocytes # (A) 0.3 k/uL (0-1.0); Monocytes % (A) 7 %; Neutrophils # (A) 2.8 k/uL (1.3-7.7); Neutrophils % (A) 60 %; Platelet Count 217 k/uL (150-450); RBC 4.03 m/uL (3.80-5.40); WBC 4.7 k/uL (3.8-10.6)
[2018-12-09] MEDS ORDERED: INDOMETHACIN 50MG SUPPOSITORY RECTAL ONE (09:00)
[2018-12-09 09:02] LABS: ALT 469 U/L (9-52); AST 172 U/L (14-36); Albumin 3.5 g/dL (3.5-5.0); Alkaline Phosphatase 186 U/L (38-126); Anion Gap 5 mmol/L; Bilirubin, Conjugated 0.6 mg/dL (0.0-0.3); Bilirubin, Delta 1.3 mg/dL (0.0-0.2); Bilirubin,Unconjugated 2.1 mg/dL (0.0-1.1); Blood Urea Nitrogen 5 mg/dL (7-17); Calcium 8.9 mg/dL (8.4-10.2); Carbon Dioxide 25 mmol/L (22-30); Chloride 109 mmol/L (98-107); Glucose 86 mg/dL (74-99); Potassium 4.5 mmol/L (3.5-5.1); Sodium 139 mmol/L (137-145); Total Protein 6.3 g/dL (6.3-8.2)
[2018-12-09] MEDS ORDERED: MIDAZOLAM 2 MG/2 ML VIAL ONE (10:42)
[2018-12-09] MEDS ORDERED: fentaNYL (PF) 50 MCG/ML 2 ML AMP ONE (10:42)
[2018-12-09] MEDS ORDERED: ONDANSETRON 4 MG/2 ML VIAL ONE (10:42)
[2018-12-09] MEDS ORDERED: SUCCINYLCHOLINE CHLORIDE 100 MG/5 ML SYR IV ONE (10:42)
[2018-12-09] MEDS ORDERED: PROPOFOL 10 MG/ML 20 ML VIAL IV ONE (10:42)
[2018-12-09] MEDS ORDERED: DEXAMETHASONE SOD PHOS (MDV) 100 MG/10 ML VIAL ONE (10:42)
[2018-12-09] MEDS ORDERED: ePHEDrine SULFATE/0.9% NACL/PF 50 MG/5 ML SYRINGE IV ONE (10:42)
[2018-12-09] MEDS ORDERED: IV FLUID CONTINUATION 1,000 ML IV ONE (12:37)
[2018-12-09] MEDS ORDERED: IOPAMIDOL-300 CONTRAST 30 ML VIAL (ORAL USE) PO ONE (12:37)
[2018-12-09] MEDS ORDERED: LACTATED RINGERS 1,000 ML IV ONE (12:38)
--- NOTE | 2018-12-09 13:08 | P.PCN ---
Date of Procedure: 12/09/18 Description of Procedure: Brief history: Pleasant 28-year-old female who was transferred to [facility] from an outside hospital after presenting with complaints of abdominal pain. The patient reports episodes of right upper quadrant abdominal pain occurring since her first 2 years ago. Episodes have been intermittent. The patient recently gave to her second child. She developed severe abdominal pain in the epigastric and right upper quadrant of her abdomen with radiation to her back. The patient had been present for 2 days prior to presentation to the hospital for evaluation. She reports the pain is intense with associated nausea and decreased oral intake. The patient had CT imaging performed which showed findings of a distal common bile duct calculi with mild CBD dilation. The patient was transferred for therapeutic intervention with ERCP. On presentation to the hospital she was found to have a total bilirubin 4.9, alkaline phosphatase 213, AST 251 and ALT 572. No fevers or chills reported. Procedure performed: ERCP with cholangiogram, sphincterotomy, balloon sweep and stent placement Preoperative diagnoses: Choledocholithiasis IV sedation per anesthesia Estimated blood loss: Minimal. Procedure: After informed consent was obtained from the patient and after the risks benefits and complications including bleeding perforation and pancreatitis explained in detail the patient was brought into the endoscopy unit. The patient was placed in prone position and IV conscious sedation was administered by anesthesia under continuous monitoring. The Olympus side-viewing duodenoscope was then inserted into the mouth and esophagus intubated without any difficulty. The scope was gradually advanced into the stomach and duodenum. The major papilla was identified without any difficulty. The ampulla was cannulated with a sphincter tone and an wire was passed into the common bile duct. Cholangiogram was performed and was significant for a dilated common bile duct, with a filling defect noted in the proximal CBD. A 11 mm sphincterotomy was made. A 11.5 mm balloon was then passed to the level of the hilum and inflated and multiple sweeps of the bile duct were performed with debris noted. There was concern for retained stone so a 7-Somali by 5 cm double pigtail plastic stent was successfully placed into the bile duct. Good flow of bile was noted. The patient tolerated the procedure well. Impression: 1. Choledocholithiasis 2. Cholangiogram, sphincterotomy, balloon sweep productive of debris from the common bile duct and stent placement was performed. Recommendations: The findings of this examination were discussed with the patient as well as her . Rajendraay for full liquid diet, advance to low-fat diet. Follow up with surgery with timing of cholecystectomy to be determined. Patient will need to return in 6-8 weeks for removal of her stent, this was explained in great detail to the patient and her family. Okay to discontinue antibiotics after discharge. Monitor for signs and symptoms of pancreatitis.
[2018-12-09] MEDS ORDERED: SODIUM CHLORIDE 0.9% 1,000 ML IV ONE (13:38)
--- NOTE | 2018-12-09 13:48 | FL ---
EXAMINATION TYPE: FL ERCP biliary duct only DATE OF EXAM: 12/09/2018 CLINICAL HISTORY: Biliary stone. TECHNIQUE: Fluoroscopy. COMPARISON: Outside CT abdomen and pelvis from 2 days ago. FINDINGS: Fluoroscopic guidance was provided during ERCP procedure performed by Dr. Mendoza. A tota l of 3 minutes 47 seconds of fluoroscopic time was utilized during the procedure and 2 spot images ar e acquired. Images acquired show successful cannulation at ampulla with subsequent placement of inter nal biliary drainage catheter. IMPRESSION: As Above.
[2018-12-09] MEDS: LEVOFLOXACIN 500MG-D5W PMX 500 MG in DEXTROSE/WATER 1 100ML.BAG IVPB SCH (17:02)
[2018-12-09] MEDS: MORPHINE SULFATE 4 MG/ML SYRINGE IV PRN (21:22)
[2018-12-09] MEDS: SODIUM CHLORIDE 0.9% 1,000 ML IV SCH (21:24)
[2018-12-10] MEDS: metroNIDAZOLE-NS PMX 500 MG in SALINE 1 100ML.BAG IVPB SCH ×3 (00:45→17:30)
--- NOTE | 2018-12-10 01:58 | P.PN ---
Subjective Progress Note Date: 12/09/18 Principal diagnosis: Choledocholithiasis 28-year-old female without significant past medical history and is three-month came to ER with complaints of right upper quadrant abdominal pain along with nausea and vomiting worsening for the past 2 days prior to admission. Patient was initially presented to [facility]. Patient was transferred to [facility] for possible choledocholithiasis. Patient was found to have elevated liver enzymes and hyperbilirubinemia 4.9 on admission currently. Patient does have abdominal pain for the past 2 days and unable to keep down foods. Patient does have sharp pain in the right upper quadrant and radiates to the back. Denied any fever or chills at home. Denied any chest pain or shortness of breath. No diarrhea. No headache or dizziness or lightheadedness. No dysuria or hematuria. The patient had CT abdomen which showed findings of a distal common bile duct calculi with mild CBD dilation. Patient was transferred for GI evaluation and ERCP. 12/09/2018 Patient is status post ERCP with cholangiogram, sphincterotomy, balloon sweep and stent placement for choledocholithiasis Patient is recommended full liquid diet with a plan to advance to low-fat; patient will be monitored closely for signs and symptoms of pancreatitis; we will continue with antibiotics at this time; GI recommending to discontinue antibiotics at time of discharge; patient will follow-up with surgery as outpatient for timing of cholecystectomy and follow-up with GI in 6-8 weeks for removal of her stent Objective - Vital Signs Vital signs: Vital Signs Temp 97.0 F L 12/09/18 12:55 Pulse 65 12/09/18 13:10 Resp 16 12/09/18 13:10 BP 140/88 12/09/18 13:10 Pulse Ox 99 12/09/18 13:10 Intake & Output 12/08/18 12/09/18 12/09/18 18:59 06:59 18:59 Intake Total 480 800 Balance 480 800 Intake: IV 800 Oral 480 Other: # Voids 2 3 - Exam Patient is lying in the bed comfortably, no acute distress, awake alert and oriented.. HEENT: Normocephalic. Neck is supple. Pupils reactive. Nostrils clear. Oral cavity is moist. Ears reveal no drainage. Neck reveals no JVD, carotid bruits, or thyromegaly. CHEST EXAMINATION: Trachea is central. Symmetrical expansion. Lung villalba clear to auscultation and percussion. CARDIAC: Normal S1, S2 with no gallops. No murmurs ABDOMEN: Soft. Right upper quadrant tenderness with deep palpation. Bowel sounds normal. No organomegaly. No abdominal bruits. Extremities: reveal no edema. No clubbing or cyanosis Neurologically awake, alert, oriented x3 with well-coordinated movements. No focal deficits noted Skin: No rash or skin lesions. Psychiatric: Coperative. Nonsuicidal Musculoskeletal: No joint swelling or deformity. Normal range of motion. - Labs CBC & Chem 7: 12/09/18 08:37 12/09/18 08:37 Labs: Abnormal Lab Results - Last 24 Hours (Table) 12/09/18 12/09/18 Range/Units 08:37 08:37 Hgb 10.9 L (11.4-16.0) gm/dL Chloride 109 H (98-107) mmol/L BUN 5 L (7-17) mg/dL Total Bilirubin 4.0 H (0.2-1.3) mg/dL Conjugated Bilirubin 0.6 H (0.0-0.3) mg/dL Unconjugated Bilirubin 2.1 H (0.0-1.1) mg/dL Delta Bilirubin 1.3 H (0.0-0.2) mg/dL AST 172 H (14-36) U/L ALT 469 H (9-52) U/L Alkaline Phosphatase 186 H (38-126) U/L Assessment and Plan Assessment: Choledocholithiasis. CT showed distal common bile duct calculi with mild CBD dilatation Hyperbilirubinemia and elevated liver enzymes 3 months DVT prophylaxis Plan: Patient will be continued on IV hydration and pain management with morphine. Patient was seen by GI and is planning for ERCP tomorrow. Empiric antibiotics for possible cholangitis, Levaquin and Flagyl was ordered. Follow up closely and further recommendations based on the clinical course.
[2018-12-10] MEDS: MORPHINE SULFATE 4 MG/ML SYRINGE IV PRN (05:10)
[2018-12-10] MEDS: SODIUM CHLORIDE 0.9% 1,000 ML IV SCH ×2 (07:25→17:30)
[2018-12-10 09:42] LABS: Basophils % (A) 0 %; Eosinophils # (A) 0.1 k/uL (0-0.7); Eosinophils % (A) 2 %; HCT 36.1 % (34.0-46.0); HGB 11.1 gm/dL (11.4-16.0); Hypochromasia Slight; Lymphocytes # (A) 1.3 k/uL (1.0-4.8); Lymphocytes % (A) 19 %; MCH 26.4 pg (25.0-35.0); MCHC 30.7 g/dL (31.0-37.0); MCV 86.1 fL (80.0-100.0); Mean Platelet Volume 6.8; Monocytes # (A) 0.5 k/uL (0-1.0); Monocytes % (A) 7 %; Neutrophils % (A) 71 %; Platelet Count 232 k/uL (150-450); RDW 14.8 % (11.5-15.5)
[2018-12-10 09:54] LABS: ALT 336 U/L (9-52); AST 75 U/L (14-36); Albumin 3.5 g/dL (3.5-5.0); Alkaline Phosphatase 190 U/L (38-126); Anion Gap 6 mmol/L; Bilirubin, Delta 0.6 mg/dL (0.0-0.2); Bilirubin,Unconjugated 0.8 mg/dL (0.0-1.1); Blood Urea Nitrogen 5 mg/dL (7-17); Calcium 9.1 mg/dL (8.4-10.2); Carbon Dioxide 25 mmol/L (22-30); Chloride 108 mmol/L (98-107); Glucose 101 mg/dL (74-99); Potassium 4.1 mmol/L (3.5-5.1); Sodium 139 mmol/L (137-145); Total Bilirubin 1.4 mg/dL (0.2-1.3); Total Protein 6.3 g/dL (6.3-8.2)
--- NOTE | 2018-12-10 11:10 | P.PN ---
Subjective Progress Note Date: 12/10/18 Principal diagnosis: Choledocholithiasis Status post ERCP sphincterotomy biliary stent placement. Feels better. Afebrile. White count 7. Hemoglobin 11.1. Total bilirubin improved 1.4. AST 75. ALT 336. AP 190 Objective - Vital Signs Vital signs: Vital Signs Temp 97.4 F L 12/10/18 08:30 Pulse 78 12/10/18 08:30 Resp 16 12/10/18 08:30 BP 103/71 12/10/18 08:30 Pulse Ox 100 12/10/18 08:30 Intake & Output 12/09/18 12/10/18 12/10/18 18:59 06:59 18:59 Intake Total 1050 240 Balance 1050 240 Intake: IV 1050 Oral 240 Other: # Voids 1 1 - Exam General appearance: The patient is alert, oriented, in no acute distress. HET: Head is normocephalic and atraumatic. Pupils are equal and reactive. Oropharynx is clear without lesions. Neck: Supple without lymphadenopathy. Trachea midline. Heart: S1 S2. Regular rate and rhythm. Lungs: No crackles or wheezes are heard. Abdomen: Soft, nontender, nondistended with bowel sounds. No peritoneal signs. No palpable organomegaly or masses. Extremities: Normal skin color and turgor. No cyanosis, rash, ulceration, clubbing, or edema. Radial and pedal pulses are 2/4 bilaterally. Neurological: No focal deficits. Strength and sensation are grossly intact. - Labs CBC & Chem 7: 12/10/18 09:22 12/10/18 09:22 Labs: Abnormal Lab Results - Last 24 Hours (Table) 12/10/18 12/10/18 Range/Units 09:22 09:22 Hgb 11.1 L (11.4-16.0) gm/dL MCHC 30.7 L (31.0-37.0) g/dL Chloride 108 H (98-107) mmol/L BUN 5 L (7-17) mg/dL Glucose 101 H (74-99) mg/dL Total Bilirubin 1.4 H (0.2-1.3) mg/dL Delta Bilirubin 0.6 H (0.0-0.2) mg/dL AST 75 H (14-36) U/L ALT 336 H (9-52) U/L Alkaline Phosphatase 190 H (38-126) U/L Assessment and Plan (1) Choledocholithiasis Narrative/Plan: Obstructive jaundice secondary to choledocholithiasis. Status post ERCP sphincterotomy biliary stent insertion Current Visit: Yes Status: Acute Code(s): K80.50 - CALCULUS OF BILE DUCT W/ O CHOLANGITIS OR CHOLECYST W/O OBST SNOMED Code(s): 631659240 (2) Abdominal pain Current Visit: Yes Status: Acute Code(s): R10.9 - UNSPECIFIED ABDOMINAL PAIN SNOMED Code(s): 35377497 (3) Elevated liver enzymes Current Visit: Yes Status: Acute Code(s): R74.8 - ABNORMAL LEVELS OF OTHER SERUM ENZYMES SNOMED Code(s): 481938357 Plan: 1. Agreeable for discharge. Return to office in 3 weeks for reevaluation and discussion of biliary stent removal. Okay to DC antibiotics after discharge. Assessment and plan a care discussed with Dr. Mendoza
[2018-12-10] MEDS ORDERED: HYDROcodone/APAP 5-325MG 1 EACH TAB PO PRN (17:10)
[2018-12-10] MEDS: LEVOFLOXACIN 500MG-D5W PMX 500 MG in DEXTROSE/WATER 1 100ML.BAG IVPB SCH (18:35)
[2018-12-10] MEDS: POLYETHYLENE GLYCOL 3350 17 GM POWD.PACK PO SCH (19:26)
--- NOTE | 2018-12-10 19:34 | P.PN ---
Subjective This is a pleasant 28 years old female, she is a status post delivery of for her baby about 3 months ago. Neuromuscular significant past history. Presents because of abdominal pain due to choledocholithiasis and elevated liver enzymes. She is status post ERCP sphincterectomy with biliary stent placement. GI team are following the case closely. Patient afebrile. Bilirubin and liver enzymes are significantly improving. Patient tolerated a liquid diet. Normal bowel movements. Discharge planning and 24-48 hours if patient continued to improve Objective - Vital Signs Vital signs: Vital Signs Temp 98.0 F 12/10/18 15:44 Pulse 84 12/10/18 15:44 Resp 16 12/10/18 15:44 BP 116/81 12/10/18 15:44 Pulse Ox 100 12/10/18 15:44 Intake & Output 12/10/18 12/10/18 12/11/18 06:59 18:59 06:59 Intake Total 240 Balance 240 Intake: Oral 240 Other: # Voids 1 3 - Exam GENERAL: The patient is alert and oriented x3, not in any acute distress. Well developed, well nourished. HEENT: Pupils are round and equally reacting to light. EOMI. No scleral icterus. No conjunctival pallor. Normocephalic, atraumatic. No pharyngeal erythema. No thyromegaly. CARDIOVASCULAR: S1 and S2 present. No murmurs, rubs, or gallops. PULMONARY: Chest is clear to auscultation, no wheezing or crackles. -ABDOMEN: Soft, mild RUQ tenderness, nondistended, normoactive bowel sounds. No palpable organomegaly. MUSCULOSKELETAL: No joint swelling or deformity. EXTREMITIES: No cyanosis, clubbing, or pedal edema. NEUROLOGICAL: Gross neurological examination did not reveal any focal deficits. SKIN: No rashes. - Labs CBC & Chem 7: 12/10/18 09:22 12/10/18 09:22 Labs: Abnormal Lab Results - Last 24 Hours (Table) 12/10/18 12/10/18 Range/Units 09:22 09:22 Hgb 11.1 L (11.4-16.0) gm/dL MCHC 30.7 L (31.0-37.0) g/dL Chloride 108 H (98-107) mmol/L BUN 5 L (7-17) mg/dL Glucose 101 H (74-99) mg/dL Total Bilirubin 1.4 H (0.2-1.3) mg/dL Delta Bilirubin 0.6 H (0.0-0.2) mg/dL AST 75 H (14-36) U/L ALT 336 H (9-52) U/L Alkaline Phosphatase 190 H (38-126) U/L Assessment and Plan Assessment: Choledocholithiasis Status post splenectomy and biliary stent removal Elevated liver enzymes and bilirubin, improving and trending down Plan: This is a pleasant [age] soft female presents with choledocholithiasis. Status post ERCP and sphincterotomy. Patient is improving. Tolerating diet clear liquids. Advanced diet to regular. No bowel movement since. Continue with antibiotic. GI and DVT prophylaxis And stayed discharge in 24-48 hours if patient continued to improve
[2018-12-11] MEDS: metroNIDAZOLE-NS PMX 500 MG in SALINE 1 100ML.BAG IVPB SCH ×2 (00:55→08:57)
[2018-12-11] MEDS: SODIUM CHLORIDE 0.9% 1,000 ML IV SCH (03:36)
[2018-12-11 07:00] LABS: Albumin 3.3 g/dL (3.5-5.0); Bilirubin, Delta 0.2 mg/dL (0.0-0.2); Bilirubin,Unconjugated 0.8 mg/dL (0.0-1.1); Total Protein 5.9 g/dL (6.3-8.2)
[2018-12-11] MEDS ORDERED: ENOXAPARIN 40 MG/0.4 ML SYRINGE SQ SCH (09:00)
[2018-12-11 09:05] VITALS: PULSE 71
[2018-12-11] MEDS: POLYETHYLENE GLYCOL 3350 17 GM POWD.PACK PO SCH (09:31)
[2018-12-11] MEDS ORDERED: DEXAMETHASONE SOD PHOS (MDV) 100 MG/10 ML VIAL ONE (10:42)
[2018-12-11] MEDS ORDERED: SUCCINYLCHOLINE CHLORIDE 100 MG/5 ML SYR IV ONE (10:42)
[2018-12-11] MEDS ORDERED: MIDAZOLAM 2 MG/2 ML VIAL ONE (10:42)
[2018-12-11] MEDS ORDERED: ePHEDrine SULFATE/0.9% NACL/PF 50 MG/5 ML SYRINGE IV ONE (10:42)
[2018-12-11] MEDS ORDERED: ONDANSETRON 4 MG/2 ML VIAL ONE (10:42)
[2018-12-11] MEDS ORDERED: fentaNYL (PF) 50 MCG/ML 2 ML AMP ONE (10:42)
[2018-12-11] MEDS ORDERED: PROPOFOL 10 MG/ML 20 ML VIAL IV ONE (10:42)
[2018-12-11 12:47] VITALS: BP 110/73; RESP 20; TEMP 98.2
--- NOTE | 2018-12-11 16:40 | P.DS ---
Providers Date of admission: 12/08/18 01:13 Attending physician: Biju Crawford MD Primary care physician: [facility] Course: Choledocholithiasis Status post splenectomy and biliary stent removal Elevated liver enzymes and bilirubin, improving and trending down Hospital course This is a pleasant 28 years old female with no significant past medical history we'll give her for her second child about 3 months ago, she was transferred from [facility] for admission for choledocholithiasis. The patient had CT imaging performed which showed findings of a distal common bile duct calculi with mild CBD dilation.. Patient has been evaluated by GI team, she is status post ERCP : with sphincterotomy, balloon sweep and stent placement, after the procedure patient felt well, she tolerating diet well, minimal abdominal pain 0-1/10 in severity, in the right upper quadrant, she has normal bowel movements. No nausea vomiting. No chest pain or dyspnea. No other complaints. Liver enzymes are trending down close to normal with significant improvement. Patient was cleared by GI team for discharge. Patient will be discharged to complete a course of her antibiotic of Levaquin for a few more days. Problems and management plan were discussed with the patient and she verbalized understanding and acceptance Patient was found stable and can be discharged home however she needs follow-up as an outpatient. She did agrees with the appointments and time and made for her with PCP and GI team Gen: patient is a AAOx3, no distress CVS: S1-S2, RRR, no murmur Lungs: B/L CTA, no wheezing Abdomen: soft, no distention, no tenderness, positive bowel sounds Extremity: no leg edema or induration Time spent more than 35 minutes Patient Condition at Discharge: Serious Plan - Discharge Summary Discharge Rx Participant: Yes New Discharge Prescriptions: New Levofloxacin [Levaquin] 500 mg PO DAILY 3 Days #3 tab traMADol HCL [Ultram] 50 mg PO Q12HR PRN #4 tab PRN Reason: Severe Pain Continue Acetaminophen Tab [Tylenol] 1,000 mg PO Q6HR PRN PRN Reason: Pain Omeprazole Magnesium [PriLOSEC OTC] 20 mg PO DAILY [id number] Acid [-U Capsule (formulary)] 1 cap PO DAILY Discontinued Naproxen Sodium [Aleve] 220 mg PO Q12HR PRN PRN Reason: Pain Discharge Medication List Acetaminophen Tab [Tylenol] 1,000 mg PO Q6HR PRN 09/12/18 [History] Omeprazole Magnesium [PriLOSEC OTC] 20 mg PO DAILY 12/08/18 [History] [id number] Acid [-U Capsule (formulary)] 1 cap PO DAILY [History] Levofloxacin [Levaquin] 500 mg PO DAILY 3 Days #3 tab 12/11/18 [Rx] traMADol HCL [Ultram] 50 mg PO Q12HR PRN #4 tab 12/11/18 [Rx] Follow up Appointment(s)/Referral(s): Kasi Mendez MD [Primary Care Provider] - 12/13/18 10:00 am (You have an appointment with Thursday, December 13, 2018 at 10:00 at the [facility] Caio Mendoza MD [STAFF PHYSICIAN] - 12/31/18 9:00 am Patient Instructions/Handouts: ERCP (Endoscopic Retrograde Cholangiopancreatography) (GEN), Endoscopic Biliary Stent Placement (DC), Endoscopic Biliary Stent Placement (GEN) Activity/Diet/Wound Care/Special Instructions: Drink plenty of fluids. Eat a well balanced diet. Good handwashing. Call you doctor if you develop increase in pain, fever, chills, or if you have any other concerns or questions. activity is limited till you see your doctor Discharge Disposition: HOME SELF-CARE
== END 2018-12-11 14:50 | disposition home or self-care (01) | DRG 446 ==
LOC: EC 00:19 → OBSVTOIN 01:13 → 6PED 01:13
PROVIDERS: ADMIT Internal Medicine; ATTEND Internal Medicine
PROC: 0F798DZ Dilation of Common Bile Duct with Intraluminal Device, Via Natural or Artificial Opening Endoscopic (ICD-10-PCS; principal; 2018-12-09 09:50)
DX: K80.31 Calculus of bile duct with cholangitis, unspecified, with obstruction (principal); Z88.6 Allergy status to analgesic agent; Z79.1 Long term (current) use of non-steroidal anti-inflammatories (NSAID)
CPT/HCPCS: 43262; 43274; 43277; 74328; 80048; 80053; 80076; 81025; 82248; 85025; 85610; 99285

== ENCOUNTER → 2019-01-30 | Day surgery (SDC) | payer BC ==
[2019-01-29 08:26] VITALS: BMI 30.9
[~2019-01-30] MED LIST: DEXAMETHASONE SOD PHOSPHATE 10 MG/ML 1 ML VIAL IV ONE; HYDROmorphone 0.5 MG/0.5 ML SYRINGE IVP PRN; IOPAMIDOL-300 50ML BTL INTRATHECA ONE; LACTATED RINGERS 1,000 ML IV ONE; LACTATED RINGERS 1,000 ML IV SCH; LEVOFLOXACIN 500MG-D5W PMX 500 MG in DEXTROSE/WATER 1 100ML.BAG IVPB ONE; LEVOFLOXACIN 750MG-D5W PMX 750 MG/150 ML BAG IVPB ONE; LIDOCAINE 1% 20 ML VIAL (10MG/ML) FOR IV START INTRADERMA PRN; LIDOCAINE 1% INJ 10MG/ML (20 ML MDV) ONE; MIDAZOLAM 2 MG/2 ML VIAL IV PRN; MIDAZOLAM 2 MG/2 ML VIAL ONE; ONDANSETRON 4 MG/2 ML VIAL IVP ONE; PROPOFOL 10 MG/ML 20 ML VIAL IV ONE; SCOPOLAMINE 1.5MG/72HR PATCH TRANSDERM ONE; SUCCINYLCHOLINE CHLORIDE 100 MG/5 ML SYR IV ONE; fentaNYL (PF) 50 MCG/ML 2 ML AMP ONE
[2019-01-30 10:51] LABS: Basophils % (A) 0 %; Eosinophils # (A) 0.3 k/uL (0-0.7); Eosinophils % (A) 6 %; HCT 36.8 % (34.0-46.0); HGB 12.3 gm/dL (11.4-16.0); Lymphocytes # (A) 2.1 k/uL (1.0-4.8); Lymphocytes % (A) 39 %; MCH 28.3 pg (25.0-35.0); MCHC 33.5 g/dL (31.0-37.0); MCV 84.6 fL (80.0-100.0); Mean Platelet Volume 7.8; Monocytes # (A) 0.3 k/uL (0-1.0); Monocytes % (A) 6 %; Neutrophils # (A) 2.5 k/uL (1.3-7.7); Neutrophils % (A) 47 %; Platelet Count 297 k/uL (150-450); RBC 4.35 m/uL (3.80-5.40); RDW 14.4 % (11.5-15.5); WBC 5.4 k/uL (3.8-10.6)
[2019-01-30 10:56] LABS: ALT 28 U/L (9-52); AST 19 U/L (14-36); Albumin 4.6 g/dL (3.5-5.0); Alkaline Phosphatase 82 U/L (38-126); Anion Gap 9 mmol/L; Blood Urea Nitrogen 14 mg/dL (7-17); Calcium 9.4 mg/dL (8.4-10.2); Carbon Dioxide 24 mmol/L (22-30); Chloride 109 mmol/L (98-107); Glucose 88 mg/dL (74-99); Potassium 4.4 mmol/L (3.5-5.1); Sodium 142 mmol/L (137-145); Total Bilirubin 0.9 mg/dL (0.2-1.3); Total Protein 7.8 g/dL (6.3-8.2)
[2019-01-30 11:02] LABS: Prothrombin Time 10.6 sec (9.0-12.0)
--- NOTE | 2019-01-30 12:11 | P.PCN ---
Date of Procedure: 01/30/19 Description of Procedure: Brief history: The patient is a pleasant 28-year-old female who was initially hospitalized with complaints of right upper quadrant abdominal pain which is been occurring intermittently since she had given to her first child. She had presented to the hospital with severe pain in the right upper quadrant with radiation to her back. CT imaging was performed and showed a distal common bile duct calculi with mild CBD dilation. At that time the patient's bilirubin was 4.9. The patient underwent ERCP with sphincterotomy, cholangiogram and balloon sweep on 12/09/2018 which was productive of debris. A double pigtailed plastic stent was placed at that time. Subsequently she underwent laparoscopic cholecystectomy on 12/18/2018. Currently she reports doing well with no abdominal pain, jaundice, darkening of her urine or change in bowel habits. She presents back to the hospital for planned ERCP with biliary stent removal.. Procedure performed: ERCP with stent removal, cholangiogram and balloon sweep Preoperative diagnoses: Biliary stent removal, history of choledocholithiasis, common bile duct debris, abnormal CT imaging IV sedation per anesthesia Estimated blood loss: Minimal. Procedure: After informed consent was obtained from the patient and after the risks benefits and complications including bleeding perforation and pancreatitis explained in detail the patient was brought into the endoscopy unit. The patient was placed in prone position and IV conscious sedation was administered by anesthesia under continuous monitoring. The Olympus side-viewing duodenoscope was then inserted into the mouth and esophagus intubated without any difficulty. The scope was gradually advanced into the stomach and duodenum. The major papilla was identified without any difficulty with previous sphincterotomy noted as well as double pigtailed stent. A snare was passed through the duodenal scope and the stent was snared and retrieved through the scope. An extraction balloon was then used to cannulate the ampulla and a wire was passed through the through the common bile duct and common hepatic duct to the bifurcation. The balloon was then passed over the wire and insufflated to 8.5 mm. Dye was then injected as the balloon was pulled towards ampulla with cholangiogram performed and significant for mild biliary dilation without any stones noted. The balloon was then deflated, passed back to the bifurcation and reinflated to 8.5 mm and the bile duct was swept. This was done approximately 10 times with bile and some debris noted. The patient tolerated the procedure well. The pancreatic duct was not cannulated or injected. Impression: 1. ERCP with removal of a double pigtail stent, cholangiogram and balloon sweep significant only for a small amount of debris and bile. Recommendations: The findings of this examination were discussed with the patient as well as her family. Okay to start clear liquid diet and advance as tolerated. Monitor for signs or symptoms of pancreatitis. Follow up with gastroenterology as needed.
--- NOTE | 2019-01-30 12:30 | FL ---
Fluoroscopy History: Stent removal Stent removal, 24 sec fl time, 4 images saved.
[2019-01-30 12:31] VITALS: TEMP 97.8
[2019-01-30 13:15] VITALS: BP 109/75; PULSE 69; RESP 18
== END | disposition home or self-care (01) ==
LOC: ORWHC2ENDO 09:13
PROVIDERS: ATTEND Internal Medicine
DX: K80.50 Calculus of bile duct without cholangitis or cholecystitis without obstruction (principal); Z88.6 Allergy status to analgesic agent; Z79.899 Other long term (current) drug therapy
CPT/HCPCS: 81025; 80053; 85025; 85610; 74330; 43277; 43276; J2250; J1100; J2405; J2001; J3010; J1956; J0330; J2704; Q9967

== ENCOUNTER 2019-01-31 18:02 | Observation (INO) | payer BC ==
[2019-01-31] MEDS ORDERED: SODIUM CHLORIDE 0.9% 1,000 ML IV STA (18:25)
[2019-01-31] MEDS ORDERED: HYDROmorphone 0.5 MG/0.5 ML SYRINGE IVP STA (18:25)
[2019-01-31] MEDS ORDERED: ONDANSETRON 4 MG/2 ML VIAL IVP STA (18:25)
--- NOTE | 2019-01-31 18:42 | ED ---
Abdominal Pain HPI - General Chief Complaint: Abdominal Pain Stated Complaint: upper abdominal pain Time Seen by Provider: 01/31/19 18:10 Source: patient Limitations: no limitations - History of Present Illness Initial Comments: 28-year-old female patient presents to the emergency department today for evaluation of upper abdominal pain and vomiting. The patient underwent ERCP w ith stent removal yesterday. Patient had the stent placed in November after she had a stone in her, bile duct, she subsequently underwent laparoscopic cholecystectomy in December. Had ERCP with stent removal yesterday with Dr. Mendoza. Patient states last evening around 7 PM she started to have vague upper abdominal pain and nausea. Patient states she progressed to vomiting throughout the night. Patient states that the pain is increased in severity today. Denies any radiation of the pain to her back. Denies any fever or chills this. Denies any hematemesis, hematochezia, or melena. Denies any constipation or diarrhea. Patient denies any recent rash, shortness breath, chest pain, back pain, numbness, tingling, dizziness, weakness, hematuria, dysuria, urinary urgency, urinary frequency, headache, visual changes, or any other complaints. - Related Data Home Medications Medication Instructions Recorded Confirmed [id number] Acid 1 cap PO DAILY 12/08/18 01/31/19 [-U Capsule (formulary)] Allergies Allergy/AdvReac Type Severity Reaction Status Date / Time ibuprofen AdvReac Nausea & Verified 01/31/19 18:14 Vomiting Review of Systems ROS Statement: Those systems with pertinent positive or pertinent negative responses have been documented in the HPI. ROS Other: All systems not noted in ROS Statement are negative. Past Medical History Past Medical History: No Reported History Additional Past Medical History / Comment(s): states "was having Abd pain-CT done showed stone in CBD" History of Any Multi-Drug Resistant Organisms: None Reported Past Surgical History: Cholecystectomy Additional Past Surgical History / Comment(s): stent placed in CBD, ERCP Past Anesthesia/Blood Transfusion Reactions: No Reported Reaction Additional Past Anesthesia/Blood Transfusion Reaction / Comment(s): no hx blood transfusion Past Psychological History: No Psychological Hx Reported Smoking Status: Never smoker Past Alcohol Use History: None Reported Past Drug Use History: None Reported - Past Family History Sister(s) Family Medical History: Deep Vein Thrombosis (DVT) General Exam Limitations: no limitations General appearance: alert, in no apparent distress, other (Physical well- developed, well-nourished adult female patient in no acute distress. Vital signs upon presentation are temperature 98.3F, pulse 73, respirations 18, blood pressure 112/63, pulse ox 100% on room air.) Eye exam: Present: normal appearance, PERRL, EOMI. Absent: scleral icterus, conjunctival injection, periorbital swelling ENT exam: Present: normal exam, normal oropharynx, mucous membranes moist Respiratory exam: Present: normal lung sounds bilaterally. Absent: respiratory distress, wheezes, rales, rhonchi, stridor Cardiovascular Exam: Present: regular rate, normal rhythm, normal heart sounds. Absent: systolic murmur, diastolic murmur, rubs, gallop, clicks GI/Abdominal exam: Present: soft, tenderness (Midepigastric tenderness, right upper quadrant tenderness), normal bowel sounds. Absent: distended, guarding, rebound, rigid Neurological exam: Present: alert, oriented X3, CN II-XII intact Psychiatric exam: Present: normal affect, normal mood Skin exam: Present: warm, dry, intact, normal color. Absent: rash Course Vital Signs 01/31/19 18:04 Temperature 98.3 F Pulse Rate 53 L Respiratory 18 Rate Blood Pressure 112/63 O2 Sat by Pulse 100 Oximetry Medical Decision Making - Medical Decision Making 28 year-old female patient presents to the emergency department today for evaluation of upper abdominal pain and vomiting. Physical examination did reveal midepigastric and right upper quadrant tenderness. Labs reviewed and did reveal elevated bilirubin of 4.1, AST 392, ALT 527, alk phos 212. Urine showed a cloudy appearance with 1.044 specific gravity, 2+ protein, 4+ ketones, 2+ bilirubin, 5 squamous epithelial cells, occasional amorphous sediment, many mucus. I did discuss the case with Dr. Villaseñor on-call for Dr. Mendoza who is concerned for possible cholangitis versus CBD stone. Patient was started on Levaquin. IV fluids, pain management, nausea medication will be provided. I did discuss the findings, results, plan with the patient, she is agreeable. - Lab Data Result diagrams: 01/31/19 18:50 01/31/19 18:50 Lab Results 01/31/19 01/31/19 01/31/19 Range/Units 18:50 18:50 18:50 WBC 7.0 (3.8-10.6) k/uL RBC 4.55 (3.80-5.40) m/uL Hgb 12.1 (11.4-16.0) gm/dL Hct 37.9 (34.0-46.0) % MCV 83.4 (80.0-100.0) fL MCH 26.5 (25.0-35.0) pg MCHC 31.8 (31.0-37.0) g/dL RDW 14.1 (11.5-15.5) % Plt Count 300 (150-450) k/uL Neutrophils % 81 % Lymphocytes % 13 % Monocytes % 5 % Eosinophils % 0 % Basophils % 0 % Neutrophils # 5.6 (1.3-7.7) k/uL Lymphocytes # 0.9 L (1.0-4.8) k/uL Monocytes # 0.4 (0-1.0) k/uL Eosinophils # 0.0 (0-0.7) k/uL Basophils # 0.0 (0-0.2) k/uL Sodium 140 (137-145) mmol/L Potassium 4.6 (3.5-5.1) mmol/L Chloride 104 (98-107) mmol/L Carbon Dioxide 27 (22-30) mmol/L Anion Gap 9 mmol/L BUN 14 (7-17) mg/dL Creatinine 0.55 (0.52-1.04) mg/dL Est GFR (CKD-EPI)AfAm >90 (>60 ml/min/1.73 sqM) Est GFR (CKD-EPI)NonAf >90 (>60 ml/min/1.73 sqM) Glucose 120 H (74-99) mg/dL Calcium 9.6 (8.4-10.2) mg/dL Total Bilirubin 4.1 H (0.2-1.3) mg/dL AST 392 H (14-36) U/L ALT 527 H (9-52) U/L Alkaline Phosphatase 212 H (38-126) U/L Total Protein 8.0 (6.3-8.2) g/dL Albumin 4.7 (3.5-5.0) g/dL Amylase 112 H (30-110) U/L Lipase 277 (23-300) U/L Urine Color Urine Appearance (Clear) Urine pH (5.0-8.0) Ur Specific [place] (1.001-1.035) Urine Protein (Negative) Urine Glucose (UA) (Negative) Urine Ketones (Negative) Urine Blood (Negative) Urine Nitrite (Negative) Urine Bilirubin (Negative) Urine Urobilinogen (<2.0) mg/dL Ur Leukocyte Esterase (Negative) Urine RBC (0-5) /hpf Urine WBC (0-5) /hpf Ur Squamous Epith Cells (0-4) /hpf Amorphous Sediment (None) /hpf Urine Mucus (None) /hpf Urine HCG, Qual Not Detected (Not Detectd) 01/31/19 Range/Units 18:50 WBC (3.8-10.6) k/uL RBC (3.80-5.40) m/uL Hgb (11.4-16.0) gm/dL Hct (34.0-46.0) % MCV (80.0-100.0) fL MCH (25.0-35.0) pg MCHC (31.0-37.0) g/dL RDW (11.5-15.5) % Plt Count (150-450) k/uL Neutrophils % % Lymphocytes % % Monocytes % % Eosinophils % % Basophils % % Neutrophils # (1.3-7.7) k/uL Lymphocytes # (1.0-4.8) k/uL Monocytes # (0-1.0) k/uL Eosinophils # (0-0.7) k/uL Basophils # (0-0.2) k/uL Sodium (137-145) mmol/L Potassium (3.5-5.1) mmol/L Chloride (98-107) mmol/L Carbon Dioxide (22-30) mmol/L Anion Gap mmol/L BUN (7-17) mg/dL Creatinine (0.52-1.04) mg/dL Est GFR (CKD-EPI)AfAm (>60 ml/min/1.73 sqM) Est GFR (CKD-EPI)NonAf (>60 ml/min/1.73 sqM) Glucose (74-99) mg/dL Calcium (8.4-10.2) mg/dL Total Bilirubin (0.2-1.3) mg/dL AST (14-36) U/L ALT (9-52) U/L Alkaline Phosphatase (38-126) U/L Total Protein (6.3-8.2) g/dL Albumin (3.5-5.0) g/dL Amylase (30-110) U/L Lipase (23-300) U/L Urine Color Brown Urine Appearance Cloudy H (Clear) Urine pH 6.0 (5.0-8.0) Ur Specific [place] 1.044 H (1.001-1.035) Urine Protein 2+ H (Negative) Urine Glucose (UA) Negative (Negative) Urine Ketones 4+ H (Negative) Urine Blood Negative (Negative) Urine Nitrite Negative (Negative) Urine Bilirubin 2+ H (Negative) Urine Urobilinogen 12.0 (<2.0) mg/dL Ur Leukocyte Esterase Negative (Negative) Urine RBC 1 (0-5) /hpf Urine WBC 4 (0-5) /hpf Ur Squamous Epith Cells 5 H (0-4) /hpf Amorphous Sediment Occasional H (None) /hpf Urine Mucus Many H (None) /hpf Urine HCG, Qual (Not Detectd) - Radiology Data Radiology results: report reviewed, image reviewed KUB x-ray of the abdomen was obtained. Report was reviewed in its entirety. Impression by Dr. Daigle shows overall nonobstructive bowel gas pattern. Disposition Clinical Impression: Cholangitis Disposition: ADMITTED IP TO THIS [facility] Condition: Serious Referrals: Kasi Mendez MD [Primary Care Provider] - 1-2 days Decision to Admit Reason: Admit from EC Decision Date: 01/31/19 Decision Time: 20:47
[2019-01-31 19:05] LABS: Basophils % (A) 0 %; Eosinophils % (A) 0 %; HCT 37.9 % (34.0-46.0); HGB 12.1 gm/dL (11.4-16.0); Lymphocytes # (A) 0.9 k/uL (1.0-4.8); Lymphocytes % (A) 13 %; MCH 26.5 pg (25.0-35.0); MCHC 31.8 g/dL (31.0-37.0); MCV 83.4 fL (80.0-100.0); Mean Platelet Volume 7.8; Monocytes # (A) 0.4 k/uL (0-1.0); Monocytes % (A) 5 %; Neutrophils # (A) 5.6 k/uL (1.3-7.7); Neutrophils % (A) 81 %; Platelet Count 300 k/uL (150-450); RBC 4.55 m/uL (3.80-5.40); RDW 14.1 % (11.5-15.5)
[2019-01-31 19:15] LABS: ALT 527 U/L (9-52); AST 392 U/L (14-36); Albumin 4.7 g/dL (3.5-5.0); Alkaline Phosphatase 212 U/L (38-126); Amylase 112 U/L (30-110); Anion Gap 9 mmol/L; Blood Urea Nitrogen 14 mg/dL (7-17); Calcium 9.6 mg/dL (8.4-10.2); Carbon Dioxide 27 mmol/L (22-30); Chloride 104 mmol/L (98-107); Glucose 120 mg/dL (74-99); Lipase 277 U/L (23-300); Potassium 4.6 mmol/L (3.5-5.1); Sodium 140 mmol/L (137-145); Total Bilirubin 4.1 mg/dL (0.2-1.3)
[2019-01-31 19:29] LABS: Amorphous Sediment,Urine Occasional /hpf; Appearance,Urine Cloudy (Clear); Bilirubin,Urine 2+ (Negative); Blood,Urine Negative (Negative); Color,Urine Brown; Glucose,Urine (UA) Negative (Negative); Ketones,Urine 4+ (Negative); Leukocyte Esterase,Urine Negative (Negative); Mucus,Urine Many /hpf; Nitrite,Urine Negative (Negative); Protein,Urine 2+ (Negative); RBC,Urine 1 /hpf (0-5); Specific Gravity,Urine 1.044 (1.001-1.035); Squamous Epithelial Cell,Urine 5 /hpf (0-4); WBC,Urine 4 /hpf (0-5)
--- NOTE | 2019-01-31 19:49 | XR ---
EXAMINATION TYPE: XR KUB DATE OF EXAM: 01/31/2019 COMPARISON: NONE HISTORY: Pain TECHNIQUE: Single supine KUB image of the abdomen is obtained FINDINGS: Small bowel demonstrates no evidence for dilatation or air fluid levels. Gas and fecal material is seen in non-distended colon. No convincing evidence for pneumoperitoneum. No unusual calcifications. The lung bases are clear. The osseous structures are intact. IMPRESSION: 1. Overall nonobstructive bowel gas pattern.
[2019-01-31] MEDS ORDERED: ONDANSETRON 4 MG/2 ML VIAL IVP PRN (20:39)
[2019-01-31] MEDS ORDERED: NALOXONE 0.4 MG/ML 1 ML VIAL IV PRN (20:39)
[2019-01-31] MEDS ORDERED: LEVOFLOXACIN 750MG-D5W PMX 750 MG in DEXTROSE/WATER 1 150ML.BAG IVPB STA (21:12)
[2019-01-31] MEDS: SODIUM CHLORIDE 0.9% 1,000 ML IV SCH (22:15)
[2019-02-01 00:11] VITALS: BMI 29.9
[2019-02-01] MEDS: HYDROmorphone 0.5 MG/0.5 ML SYRINGE IVP PRN (09:11)
[2019-02-01 09:22] LABS: ALT 371 U/L (9-52); AST 168 U/L (14-36); Albumin 3.9 g/dL (3.5-5.0); Alkaline Phosphatase 172 U/L (38-126); Amylase 63 U/L (30-110); Anion Gap 6 mmol/L; Blood Urea Nitrogen 14 mg/dL (7-17); Calcium 8.9 mg/dL (8.4-10.2); Carbon Dioxide 25 mmol/L (22-30); Chloride 108 mmol/L (98-107); Glucose 83 mg/dL (74-99); Lipase 159 U/L (23-300); Potassium 4.6 mmol/L (3.5-5.1); Sodium 139 mmol/L (137-145); Total Bilirubin 4.4 mg/dL (0.2-1.3); Total Protein 6.8 g/dL (6.3-8.2)
[2019-02-01] MEDS: SODIUM CHLORIDE 0.9% 1,000 ML IV SCH (09:39)
[2019-02-01] MEDS ORDERED: PIPERACILLIN-TAZOBACTAM 3.375 GM in SODIUM CHLORIDE 0.9% 100 ML IVPB SCH (17:15)
[2019-02-01] MEDS: ENOXAPARIN 40 MG/0.4 ML SYRINGE SQ SCH (17:28)
[2019-02-01] MEDS: LACTATED RINGERS 1,000 ML IV SCH ×2 (17:40→23:57)
--- NOTE | 2019-02-01 17:49 | HP ---
HISTORY AND PHYSICAL DATE OF ADMISSION: 01/31/2019 DATE OF SERVICE: 02/01/2019 PRESENTING COMPLAINT: Abdominal pain, nausea and vomiting. HISTORY OF PRESENTING COMPLAINT: A very pleasant 28-year-old patient of Dr. Romero who was here in November of this year and on December 09 when she presented abdominal pain for 2 years off and on and presented at this time with severe abdominal pain. The patient then was found to have distal common bile duct calculi with some CBD dilatation. The patient did have a ERCP cholangiogram, sphincterotomy and balloon sweep and stent placement. The patient subsequently on 01/30/2019 had the stent removed and went home in the evening. Patient started having severe pain in the right upper quadrant, nausea, vomiting, and presented to the ER. In the ER, there was no fever, but patient's LFTs bumped up to AST 392, ALT to 527 from 43 and 243 from 12/11/2018. The patient was admitted for the same and was put on IV Levaquin. I saw this patient this afternoon, abdominal pain is better. Nausea is improving. Her is at the bedside. Does feel a bit tired and run down. REVIEW OF SYSTEMS: CONSTITUTIONAL: Tired. HEENT: None. RESPIRATORY: None. CARDIOVASCULAR: None. GASTROINTESTINAL: As above. GENITOURINARY: None. MUSCULOSKELETAL: None. DERMATOLOGICAL: None. HEMATOLOGIC: None. LYMPHATICS: None. PSYCHIATRY: None. NEUROLOGICAL: None. PAST MEDICAL HISTORY: Common bile duct stone. PAST SURGICAL HISTORY: Cholecystectomy, stent to the common bile duct, ERCP. SOCIAL HISTORY: No smoking. No alcohol. . FAMILY HISTORY: Family history of DVT. HOME MEDICATIONS: multivitamin. ALLERGIES: Allergies to IBUPROFEN causing nausea vomiting. PHYSICAL EXAMINATION: On examination, temperature 98.1, pulse 56, respirations 16, blood pressure 99/64, pulse ox 100% on room air. GENERAL APPEARANCE: Well built. BMI 30.1. Sitting on bed, tired appearing. EYES: Pupils equal. Conjunctivae normal. HENT: External appearance of nose and ears normal. Oral cavity normal. NECK: JVD not raised. Mass not palpable. RESPIRATORY: Effort normal. LUNGS: Fair entry. CARDIOVASCULAR: First and second sounds normal. No edema. ABDOMEN: Soft. Right upper quadrant tenderness. No guarding or rigidity. Liver and spleen not palpable. LYMPHATIC: No lymph node palpable in the neck or axillae. PSYCHIATRY: Alert and oriented x3. Mood and affect normal. NEUROLOGICAL: Pupils equal. Cranial nerves grossly intact. Power and sensation grossly intact. INVESTIGATIONS: Potassium 4.6. BUN and creatinine normal. Total bilirubin 4.1, repeat 4.4 today. AST from 392 yesterday down to 168 and ALT from 527 down to 371. ASSESSMENT: 1. Acute upper quadrant pain, post stent removal, possibly from obstruction, could be from edema with obstructive hepatitis picture. No obvious fever. 2. Obesity, body mass index 31. 3. Hyperbilirubinemia from above. PLAN: Patient was on IV Levaquin. We will switch to IV Zosyn. We will start the patient on clear liquids as she is feeling somewhat better. Repeat LFTs in the morning. Care was discussed with the patient and . GI, Dr. Villaseñor, has been consulted. We will see how she does. Encouraged to be out of bed and ambulate. Questions were answered. MMODL / IJN: [id number] /
[2019-02-01] MEDS ORDERED: LEVOFLOXACIN 750MG-D5W PMX 750 MG in DEXTROSE/WATER 1 150ML.BAG IVPB SCH (22:00)
[2019-02-02] MEDS: HYDROmorphone 0.5 MG/0.5 ML SYRINGE IVP PRN (01:54)
[2019-02-02] MEDS: PIPERACILLIN-TAZOBACTAM 3.375 GM in SODIUM CHLORIDE 0.9% 100 ML IVPB SCH ×2 (04:10→12:03)
[2019-02-02] MEDS: LACTATED RINGERS 1,000 ML IV SCH (06:39)
[2019-02-02 07:37] LABS: Basophils % (A) 0 %; Eosinophils # (A) 0.1 k/uL (0-0.7); Eosinophils % (A) 2 %; HCT 33.1 % (34.0-46.0); HGB 10.8 gm/dL (11.4-16.0); Hypochromasia Slight; Lymphocytes # (A) 1.9 k/uL (1.0-4.8); Lymphocytes % (A) 46 %; MCH 27.6 pg (25.0-35.0); MCHC 32.6 g/dL (31.0-37.0); MCV 84.7 fL (80.0-100.0); Mean Platelet Volume 8.3; Monocytes # (A) 0.3 k/uL (0-1.0); Monocytes % (A) 8 %; Neutrophils # (A) 1.7 k/uL (1.3-7.7); Neutrophils % (A) 42 %; Platelet Count 217 k/uL (150-450); RBC 3.91 m/uL (3.80-5.40); RDW 13.7 % (11.5-15.5); WBC 4.2 k/uL (3.8-10.6)
[2019-02-02 08:13] LABS: ALT 251 U/L (9-52); AST 79 U/L (14-36); Albumin 3.4 g/dL (3.5-5.0); Alkaline Phosphatase 161 U/L (38-126); Anion Gap 5 mmol/L; Blood Urea Nitrogen 9 mg/dL (7-17); Calcium 8.8 mg/dL (8.4-10.2); Carbon Dioxide 28 mmol/L (22-30); Chloride 106 mmol/L (98-107); Glucose 84 mg/dL (74-99); Potassium 4.5 mmol/L (3.5-5.1); Sodium 139 mmol/L (137-145); Total Bilirubin 3.5 mg/dL (0.2-1.3)
--- NOTE | 2019-02-02 08:37 | P.CONS ---
History of Present Illness - Reason for Consult Consult date: 02/01/19 Cholangitis - History of Present Illness The patient is a 28-year-old female who presented to the emergency department for evaluation of upper abdominal pain and vomiting. The patient underwent ERCP with stent removal yesterday with Dr Mendoza. Patient had the stent placed in November after she had a stone in her CBD. She subsequently underwent laparoscopic cholecystectomy in December. Patient states That she started to have vague upper abdominal pain and nausea around 7 pm that day. Patient states she progressed to vomiting throughout the night. Patient states that the pain is increased in severity on the day of this admission. Denies any radiation of the pain to her back. Denies any fever or chills this. Denies any hematemesis, hematochezia, or melena. Denies any constipation or diarrhea. Patient denies any recent rash, shortness breath, chest pain, back pain, numbness, tingling, dizziness, weakness, hematuria, dysuria, urinary urgency, urinary frequency, headache, visual changes, or any other complaints. Her amylase was minimally elevated, however, her liver enzymes were elevated with total bilirubin 4.4 and transaminase close to 10 times normal. I was contacted by the emergency department staff and the patient was admitted for cholangitis. Review of Systems Constitutional: Denies fever, chills and unintentional weight loss Neurologic: Denies headache, blurred vision or sensory or motor changes Cardiopulmonary: No chest pains, shortness of breath or palpitations Gastrointestinal: See present illness above Endocrine: No history of diabetes or thyroid disease Hematologic: No anemia or bleeding tendency Musculoskeletal: No joint swelling or pains Skin: No rashes Psychiatric: No anxiety or depression Past Medical History Past Medical History: No Reported History Additional Past Medical History / Comment(s): states "was having Abd pain-CT done showed stone in CBD" History of Any Multi-Drug Resistant Organisms: None Reported Past Surgical History: Cholecystectomy Additional Past Surgical History / Comment(s): stent placed in CBD, ERCP Past Anesthesia/Blood Transfusion Reactions: No Reported Reaction Additional Past Anesthesia/Blood Transfusion Reaction / Comm: no hx blood transfusion Past Psychological History: No Psychological Hx Reported Smoking Status: Never smoker Past Alcohol Use History: None Reported Past Drug Use History: None Reported - Past Family History Sister(s) Family Medical History: Deep Vein Thrombosis (DVT) Mother Additional Family Medical History / Comment(s): Cholecysectomy Medications and Allergies Home Medications Medication Instructions Recorded Confirmed Type Xkb-Tmtf-Dtguz Acid 1 cap PO DAILY 12/08/18 02/01/19 History [-U Capsule (formulary)] Allergies Allergy/AdvReac Type Severity Reaction Status Date / Time ibuprofen AdvReac Nausea & Verified 02/01/19 00:57 Vomiting Physical Exam Vitals: Vital Signs Temp Pulse Pulse Pulse Resp BP BP 02/01/19 16:10 97.6 F 52 L 18 118/78 02/01/19 13:37 56 L 16 02/01/19 11:40 97.7 F 50 L 16 108/72 02/01/19 09:00 16 02/01/19 08:10 98.1 F 67 16 125/83 02/01/19 00:00 98.1 F 56 L 16 99/64 01/31/19 23:46 97.9 F 113 H 24 01/31/19 21:52 97.6 F 63 17 100/62 Pulse Ox 02/01/19 16:10 100 02/01/19 13:37 02/01/19 11:40 100 02/01/19 09:00 02/01/19 08:10 100 02/01/19 00:00 100 01/31/19 23:46 97 01/31/19 21:52 97 Intake and Output 02/01/19 02/01/19 02/01/19 06:59 14:59 22:59 Other: Voiding Method Toilet Toilet Toilet # Voids 1 2 General: Appears stated age, very pleasant in no acute distress Head and neck: Normocephalic and atraumatic, conjunctivae pink and sclerae not icteric, mucous membranes moist and pink. No masses in the neck or tracheal shifts Lungs: Clear to auscultation with no dullness to percussion Heart: Regular, no abnormal sounds, murmurs, gallops or friction rubs Abdomen: Soft, no masses, organomegalies or tenderness. Bowel sounds present Extremities: No clubbing, cyanosis or edema Neurologic: Alert and oriented 3, cranial nerves grossly intact, no gross sensory or motor abnormalities Results CBC & Chem 7: 02/02/19 07:19 02/02/19 07:19 Labs: Abnormal Lab Results - Last 24 Hours (Table) 0401/31/19 01/31/19 Range/Units 18:50 18:50 18:50 Lymphocytes # 0.9 L (1.0-4.8) k/uL Chloride (98-107) mmol/L Glucose 120 H (74-99) mg/dL Total Bilirubin 4.1 H (0.2-1.3) mg/dL AST 392 H (14-36) U/L ALT 527 H (9-52) U/L Alkaline Phosphatase 212 H (38-126) U/L Amylase 112 H (30-110) U/L Urine Appearance Cloudy H (Clear) Ur Specific Apex 1.044 H (1.001-1.035) Urine Protein 2+ H (Negative) Urine Ketones 4+ H (Negative) Urine Bilirubin 2+ H (Negative) Ur Squamous Epith Cells 5 H (0-4) /hpf Amorphous Sediment Occasional H (None) /hpf Urine Mucus Many H (None) /hpf 02/01/19 Range/Units 08:54 Lymphocytes # (1.0-4.8) k/uL Chloride 108 H (98-107) mmol/L Glucose (74-99) mg/dL Total Bilirubin 4.4 H (0.2-1.3) mg/dL AST 168 H (14-36) U/L ALT 371 H (9-52) U/L Alkaline Phosphatase 172 H (38-126) U/L Amylase (30-110) U/L Urine Appearance (Clear) Ur Specific Apex (1.001-1.035) Urine Protein (Negative) Urine Ketones (Negative) Urine Bilirubin (Negative) Ur Squamous Epith Cells (0-4) /hpf Amorphous Sediment (None) /hpf Urine Mucus (None) /hpf Assessment and Plan Assessment: Picture consistent with cholangitis. Would keep in mind the possibility of retained common bile duct stone. Plan: Agree with your current management. The patient received Levaquin in the emergency room and was changed to Zosyn today. Will continue to observe and make further plans based on her course. If she continues to improve she can be discharged on antibiotics and follow with Dr. Mendoza as outpatient.
[2019-02-02 08:48] VITALS: TEMP 97.6
[2019-02-02] MEDS: ENOXAPARIN 40 MG/0.4 ML SYRINGE SQ SCH (08:59)
[2019-02-02 13:05] VITALS: BP 131/84; PULSE 49; RESP 20
--- NOTE | 2019-02-03 05:26 | DS ---
DISCHARGE SUMMARY DATE OF ADMISSION: 01/31/2019 DATE OF DISCHARGE: 02/02/2019 FINAL DIAGNOSES: 1. Acute obstructive hepatitis picture, probably from edema of the common bile duct following stent removal. 2. Obesity BMI 31. 3. Hyperbilirubinemia from above. HOSPITAL COURSE: This very pleasant lady on December 09 had presented to the hospital with abdominal pain on and off for 2 years, was found to have common bile duct calculi with CBD dilatation. The patient did have a ERCP and sphincterotomy and a stent was placed. The patient then on January 30, had a stent removed, went home that evening. A lot of pain, nausea, vomiting, abdominal pain, presented with LFTs going up and the patient was put on IV antibiotics. Clear liquids. Today, doing much better. LFTs are coming down. No further pain. No nausea, vomiting. Did tolerate a full liquid diet. Afebrile. CONSULTATION: Dr. Villaseñor from GI. EXAMINATION: Temp 97.6, pulse 72, respiration 16, blood pressure 110/73. Pulse ox 100 percent on room air. ABDOMEN: Soft, nontender. INVESTIGATIONS: White count 4.2, hemoglobin 10.8, potassium 4.5, total bilirubin 3.5 coming down. AST 79, ALT 251. Care was discussed at length with the patient and at bedside. Discussion and discharge planning more than 35 minutes. DISCHARGE MEDICATIONS: 1. capsule. 2. Augmentin 875 1 tablet p.o. q.12h 14 tablets. FOLLOWUP: Follow up with Dr. Mendez in 3 days. Follow up with Dr. Mendoza in 1 week. CMP in [address] Mendez. MMROLANDL / IJN: [id number] /
== END 2019-02-02 16:15 | disposition home or self-care (01) ==
LOC: EC 18:02 → 6PED 21:12
PROVIDERS: ADMIT Hospitalist; ATTEND Hospitalist
DX: K83.09 Other cholangitis (principal); E80.6 Other disorders of bilirubin metabolism; Z68.31 Body mass index [BMI] 31.0-31.9, adult; E66.9 Obesity, unspecified; Z90.49 Acquired absence of other specified parts of digestive tract; Z88.6 Allergy status to analgesic agent; Z87.19 Personal history of other diseases of the digestive system; Z82.49 Family history of ischemic heart disease and other diseases of the circulatory system
CPT/HCPCS: 96361 ×3; 96365; 96366 ×2; 96372 ×2; 96376 ×2; 96375; 99284; 36415; 80053 ×3; 82150 ×2; 83690 ×2; 85025 ×2; 81001; 81025; 87040; 74018; G0378 ×3; J2543 ×2; J2405; J1650 ×2; J1956; J1170 ×3

== ENCOUNTER 2020-12-01 06:00 | Inpatient (IN) | payer BC ==
[2020-12-01] MEDS ORDERED: OXYTOCIN 10 UNIT/ML 1 ML VIAL IM PRN (06:31)
[2020-12-01] MEDS ORDERED: TERBUTALINE 1 MG/ML VIAL SQ PRN (06:31)
[2020-12-01] MEDS ORDERED: LIDOCAINE 0.5% (PF) 5 MG/ML (50 ML SDV) SQ PRN (06:31)
[2020-12-01] MEDS ORDERED: METHYLERGONOVINE 0.2 MG/ML 1 ML AMP IM PRN (06:31)
[2020-12-01] MEDS ORDERED: CARBOPROST TROMETHAMINE 250 MCG/ML 1 ML AMP IM PRN (06:31)
[2020-12-01] MEDS: OXYTOCIN 30 UNITS/500 ML NS 30 UNIT in SALINE 1 500ML.BAG IV SCH ×2 (06:40→10:50)
[2020-12-01] MEDS ORDERED: LACTATED RINGERS 1,000 ML IV SCH (06:45)
[2020-12-01 06:48] VITALS: RESP 16
[2020-12-01 07:06] LABS: Anisocytosis Slight; Basophils % (A) 0 %; Eosinophils # (A) 0.1 k/uL (0-0.7); Eosinophils % (A) 1 %; HGB 12.5 gm/dL (11.4-16.0); Lymphocytes # (A) 1.7 k/uL (1.0-4.8); Lymphocytes % (A) 25 %; MCH 28.2 pg (25.0-35.0); MCHC 32.2 g/dL (31.0-37.0); MCV 87.8 fL (80.0-100.0); Mean Platelet Volume 9.1; Monocytes # (A) 0.5 k/uL (0-1.0); Monocytes % (A) 7 %; Neutrophils # (A) 4.5 k/uL (1.3-7.7); Neutrophils % (A) 66 %; Platelet Count 246 k/uL (150-450); RBC 4.44 m/uL (3.80-5.40); RDW 16.9 % (11.5-15.5); WBC 6.8 k/uL (3.8-10.6)
--- NOTE | 2020-12-01 07:27 | P.HPOB ---
History of Present Illness H&P Date: 12/01/20 Chief Complaint: Here for induction of labor This is a 30-year-old white female 3 para 2002 EDC 12/02/2020 at 39-6/7 weeks' gestation. Patient presents for induction with reasonably favorable multiparous cervix. Fetus is been active throughout the . She denies vaginal bleeding or fluid leakage. Past medical history is significant for chronic constipation. Past surgical history cholecystectomy 2019. Current medications vitamins daily. ALLERGIES none known. Family history significant for blood clots. Social history patient is , she is never been a smoker, she denies alcohol or drug use. history is significant for blood type A+, rubella status immune. VDRL testing, urine screen, hepatitis B surface antigen and HIV testing, gonorrhea and chlamydia cultures, group B strep cultures all negative. One-hour Glucola 98. On exam patient is 5 foot 3 inches, 200 pounds, blood pressure 126/80. Vital signs are stable and she is afebrile. General physical exam is within normal limits. Extremities reveal no edema. Cervix is 3 cm dilated, 70% effaced, -2 station, soft and anterior. Artificial amniorrhexis reveals clear fluid. heart rate is consistent with reactive NST with a baseline in the 140s. Impression: 39-6/7 weeks intrauterine , here for induction of labor, all signs reassuring. Plan close maternal and surveillance. Analgesic options reviewed with the patient. Oxytocin per hospital protocol. Anticipate normal spontaneous vaginal delivery. Review of Systems Constitutional: Reports as per HPI Past Medical History Past Medical History: No Reported History Additional Past Medical History / Comment(s): states "was having Abd pain-CT done showed stone in CBD" History of Any Multi-Drug Resistant Organisms: None Reported Past Surgical History: Cholecystectomy Additional Past Surgical History / Comment(s): stent placed in CBD, ERCP Past Anesthesia/Blood Transfusion Reactions: No Reported Reaction Additional Past Anesthesia/Blood Transfusion Reaction / Comment(s): no hx blood transfusion Past Psychological History: No Psychological Hx Reported Smoking Status: Never smoker Past Alcohol Use History: None Reported Past Drug Use History: None Reported - Past Family History Sister(s) Family Medical History: Deep Vein Thrombosis (DVT) Mother Additional Family Medical History / Comment(s): Cholecysectomy Medications and Allergies Home Medications Medication Instructions Recorded Confirmed Type Dbu-Sead-Xdxbt Acid 1 cap PO DAILY 12/08/18 12/01/20 History [-U Capsule (formulary)] Aspirin 1 tab PO DAILY 12/01/20 12/01/20 History Allergies Allergy/AdvReac Type Severity Reaction Status Date / Time ibuprofen AdvReac Nausea & Verified 12/01/20 06:30 Vomiting Exam Vital Signs Temp Pulse Resp BP 12/01/20 06:43 97.0 F L 91 16 126/80 Intake and Output 11/30/20 12/01/20 12/01/20 22:59 06:59 14:59 Other: Weight 90.718 kg See dictation under HPI please Results Result Diagrams: 12/01/20 06:30 Abnormal Lab Results - Last 24 Hours (Table) 12/01/20 Range/Units 06:30 RDW 16.9 H (11.5-15.5) % Assessment and Plan Assessment: 39-6/7 weeks intrauterine , here for induction of labor, all signs reassuring. Plan: Oxytocin per hospital protocol. Close maternal and surveillance. Anticipate normal spontaneous vaginal delivery. Time with Patient: Less than 30
[2020-12-01] MEDS ORDERED: BUTORPHANOL 1 MG/ML 1 ML VIAL IV PRN (10:05)
[2020-12-01] MEDS ORDERED: LANOLIN CREAM 5 GM TUBE TOPICAL PRN (11:07)
[2020-12-01] MEDS ORDERED: diphenhydrAMINE 50 MG CAP PO PRN (11:07)
[2020-12-01] MEDS ORDERED: BENZOCAINE/MENTHOL SPRAY 1 GM/SPRAY AEROSOL TOPICAL PRN (11:07)
[2020-12-01] MEDS ORDERED: diphenhydrAMINE 50 MG/ML 1 ML VIAL IVP PRN ×2 (11:07)
[2020-12-01] MEDS ORDERED: HYDROCORTISONE 2.5% RECTAL CREAM 30 GM TUBE RECTAL PRN (11:07)
[2020-12-01] MEDS ORDERED: ACETAMINOPHEN TAB 325 MG TAB PO PRN (11:07)
[2020-12-01] MEDS ORDERED: ZOLPIDEM 5 MG TAB PO PRN (11:07)
[2020-12-01] MEDS ORDERED: SIMETHICONE 80 MG CHEWABLE PO PRN (11:07)
[2020-12-01] MEDS ORDERED: IBUPROFEN 600 MG TAB PO PRN (11:07)
[2020-12-01] MEDS ORDERED: diphenhydrAMINE ELIXIR 25 MG/10 ML CUP PO PRN (11:07)
[2020-12-01] MEDS ORDERED: diphenhydrAMINE 25 MG CAP PO PRN (11:07)
--- NOTE | 2020-12-01 11:07 | P.PROBDLV ---
Vaginal Delivery Note - . Vaginal Delivery Note: This is a 30-year-old white female 3 para 2001 EDC 12/02/2020 at 39-6/7 weeks' gestation. Patient presented for induction with favorable multiparous cervix. Fetus is been active throughout the . Group B strep cultures negative, blood type A positive, rubella status immune. Please see dictated history and physical for details. Artificial amniorrhexis revealed clear fluid. Oxytocin was started and titrated per hospital protocol. Analgesic options reviewed with the patient, she did receive Stadol 1 mg at 10:15. She progressed well through the first stage of labor and became completely dilated at 1044 hrs. Perineal body was prepped and draped in usual sterile fashion. With excellent maternal expulsive efforts 's head delivered occiput anterior and he restituted accordingly. There was no nuchal cord noted. The left or anterior shoulder was delivered from underneath the pubic symphysis at which time the oropharynx, nasopharynx, and external nares were all bulb suctioned. Patient was officially delivered of a liveborn male at 1046 hrs. Umbilical cord was doubly clamped and ligated, he was handed to waiting nurses for evaluation where scores of 9 and 9 at one and 5 minutes respectively were given. weighed 3270 g, or 7 lbs. 3 oz. Placenta delivered spontaneously, it was inspected and noted to be intact with trivascular cord at 1050 hrs. Uterus is then massaged. Gentle inspection of the cervix, vagina, perineum, periurethral, and perirectal areas revealed a small first-degree midline laceration. This was injected with lidocaine and repaired in the usual sterile fashion using 3-0 repeat. All sponge needle and enhancement counts are correct. Estimated blood loss 200 mL's. Patient is requesting circumcision for her son. They are allowed to begin the bonding experience in the LDR.
[2020-12-01] MEDS: ACETAMINOPHEN TAB 500 MG TAB PO PRN ×2 (12:24→20:46)
[2020-12-01] MEDS: SENNOSIDES-DOCUSATE SODIUM 1 EACH TAB PO SCH (20:43)
--- NOTE | 2020-12-02 08:04 | P.DS ---
Providers Date of admission: 12/01/20 06:08 Expected date of discharge: 12/02/20 Attending physician: Vanita Troncoso Primary care physician: Stated None Hospital Course: This is a 30-year-old female 3 para 2001 EDC 12/02/2020 at 39-6/7 weeks' gestation who presented for induction with favorable multiparous cervix. is remarkable for rubella status immune, blood type A+, group B strep cultures negative. Please see dictated history and physical for details. Artificial amniorrhexis revealed clear fluid. Oxytocin was started and titrated. Patient went on to deliver vaginally a liveborn male with scores of 9 and 9 at one and 5 minutes respectively. There was an estimated blood loss of 200 mL, a very small first-degree perineal laceration easily repaired. weighed 3270 g or 7 lbs. 3 oz. Please see dictated delivery note for details. This morning the patient is doing well. She is voiding, ambulating, passing flatus without difficulty. I'll signs are stable and she is afebrile. Fundus is firm and in the midline, symmetric and 18 week size. Extremities are negative for edema. Chest is clear in all villalba. Circumcision will be performed this morning. Patient is judged to be in very good condition for discharge home. She will follow-up with me in the office in 6 weeks. I have reminded her no intercourse, tampons or douching. She will use [id number] Advil or Aleve, or Motrin as needed for pain. She will call with any fevers shakes or chills, foul smelling or copious lochia, with the passage of large blood clots, with any pain not alleviated by zluc-ant-thyafax products, or indeed with any concerns. Double electric breast pump has been provided and its use reviewed. Contraceptive options have been reviewed briefly, we will discuss this further in the office. Assessment: Doing well day #1 Patient Condition at Discharge: Good Plan - Discharge Summary Discharge Rx Participant: No New Discharge Prescriptions: No Action Lrr-Mjdr-Hrwne Acid [-U Capsule (formulary)] 1 cap PO DAILY Aspirin 1 tab PO DAILY Discharge Medication List Lxr-Hlrb-Zselp Acid [-U Capsule (formulary)] 1 cap PO DAILY 12/08/18 [History] Aspirin 1 tab PO DAILY 12/01/20 [History] Follow up Appointment(s)/Referral(s): Vanita Troncoso MD [STAFF PHYSICIAN] - 6 Weeks Discharge Disposition: HOME SELF-CARE
[2020-12-02] MEDS: SENNOSIDES-DOCUSATE SODIUM 1 EACH TAB PO SCH (08:06)
[2020-12-02 12:17] VITALS: BP 106/72; PULSE 80; TEMP 98.2
== END 2020-12-02 13:35 | disposition home or self-care (01) | DRG 807 ==
LOC: 4FBP 06:08
PROVIDERS: ADMIT Obstetrics & Gynecology; ATTEND Obstetrics & Gynecology
PROC: 3E033VJ Introduction of Other Hormone into Peripheral Vein, Percutaneous Approach (ICD-10-PCS; principal; 2020-12-01)
PROC: 10E0XZZ Delivery of Products of Conception, External Approach (ICD-10-PCS; principal; 2020-12-01)
PROC: 3E0P7VZ Introduction of Hormone into Female Reproductive, Via Natural or Artificial Opening (ICD-10-PCS; principal; 2020-12-01)
PROC: 10907ZC Drainage of Amniotic Fluid, Therapeutic from Products of Conception, Via Natural or Artificial Opening (ICD-10-PCS; principal; 2020-12-01)
PROC: 0HQ9XZZ Repair Perineum Skin, External Approach (ICD-10-PCS; principal; 2020-12-01)
DX: O70.0 First degree perineal laceration during delivery (principal); Z37.0 Single live birth; Z3A.39 39 weeks gestation of pregnancy; Z90.49 Acquired absence of other specified parts of digestive tract; Z79.82 Long term (current) use of aspirin; Z79.899 Other long term (current) drug therapy; Z82.49 Family history of ischemic heart disease and other diseases of the circulatory system; Z87.19 Personal history of other diseases of the digestive system; Z88.6 Allergy status to analgesic agent
CPT/HCPCS: 85025; 86850; 86900; 86901